=== PATIENT | female | born 1935 | race Caucasian/White ===

== ENCOUNTER → 2016-12-02 | Outpatient (CLI) | payer MEDICARE ==
[~2016-12-02] MED LIST: ACET500C PO; ASPI-110 PO; ASPI81 PO; BENI20TA25 PO; BENI40TA3 PO; COLA100C3 PO; ENOX40P SQ; ERGO1CAP10 PO; GABA100C4 PO; LEVO.15 PO; LOSA100T PO; LOSA50TA PO; MAXZ PO; METF-324 PO; METF1000 PO; MILK2400 PO; MULTCHW27 PO; OXYC-360 PO; PERC5TAB12 PO; SIMV20 PO; STOO100C PO; TYLE500T PO; ZOCO20TA PO; [UNRECOGNIZED DRUG - CODE] PO
[2016-12-02 10:53] LABS: AUTOMATED NEUTROPHIL # 4.3 TH/MM3 (1.8-7.7); BASOPHIL % 0.3 % (0.0-2.0); EOSINOPHIL # 0.3 TH/MM3 (0-0.4); EOSINOPHIL % 4.2 % (0.0-4.0); HEMATOCRIT 39.8 % (35.0-46.0); HEMO FLAGS DIFF FINAL; LYMPH % 17.2 % (9.0-44.0); LYMPHOCYTE # 1.1 TH/MM3 (1.0-4.8); MEAN CELL VOLUME 103.3 FL (80.0-100.0); MEAN CORPUSCULAR HEMOGLOBIN 34.8 PG (27.0-34.0); MEAN CORPUSCULAR HGB CONC 33.7 % (32.0-36.0); MONO % 8.2 % (0.0-8.0); NEUT % 70.1 % (16.0-70.0); PLATELET COUNT 304 TH/MM3 (150-450); RED BLOOD COUNT 3.86 MIL/MM3 (4.00-5.30); RED CELL DISTRIBUTION WIDTH 13.5 % (11.6-17.2); WHITE BLOOD COUNT 6.2 TH/MM3 (4.0-11.0)
--- NOTE | 2016-12-03 14:37 | EKG ---
Date Performed: 12/02/2016 Time Performed: 10:34:04 PTAGE: 81 years EKG: Sinus rhythm with PAC(s) Prolonged QT interval Left axis deviation Left anterior fascicular block Abnormal ECG Co mpared to PREVIOUS TRACING , precordial R-wave progression has changed which may be due to lead eliane cement. PREVIOUS TRACIN10/25/2010 10.49 DOCTOR: Yasmain Hickman Interpretating Date/Time 12/03/2016 14:35:51
== END ==
LOC: PHPRE 09:23
PROVIDERS: ATTEND Ophthalmology
DX: H25.9 Unspecified age-related cataract (principal); I10 Essential (primary) hypertension; R94.31 Abnormal electrocardiogram [ECG] [EKG]
CPT/HCPCS: 85025; 93005

== ENCOUNTER → 2016-12-16 | Day surgery (SDC) | payer MEDICARE ==
--- NOTE | 2016-12-03 15:18 | MH ---
cc: SONI HECK M.D. DATE OF ADMISSION: 12/16/2016 ADMISSION DIAGNOSIS Cataract, right eye. HISTORY OF PRESENT ILLNESS This 81-year-old white female is coming through [facility] for the purpose of a lens extraction of the right eye with intraocular lens implant under local anesthesia. She has noted decreasing visual acuity interfering with her daily activities and elected to have the above procedure. Her best-corrected visual acuity in room light is 20/200 in the right eye and 20/50 +2 in the left. PAST MEDICAL HISTORY 1. Diabetes type 2 for 18 years. 2. History of thyroid problems. 3. Rheumatoid arthritis. 4. Cholesterol problems. PAST SURGICAL HISTORY 1. Ovarian surgery. 2. Thyroid surgery. 3. Left ankle fusion. 4. Right knee replacement. MEDICATIONS Daily medications include: 1. Metformin. 2. Hydrochlorothiazide. 3. Simvastatin. 4. Levothyroxine. 5. Vitamin-D. 6. Multivitamins. 7. Two baby aspirin a day. ALLERGIES She is allergic to PENICILLIN. SOCIAL HISTORY She is not smoking currently and does not drink alcohol. FAMILY HISTORY Noncontributory. REVIEW OF SYSTEMS HEAD: Patient denies severe headaches, dizziness or recent head injury. EARS: The patient has ringing in her ears for a few years. Patient denies hearing loss, ear pain, discharge. NOSE: She has some nasal discharge due to allergies. Denies obstruction or frequent colds. MOUTH AND THROAT: Patient denies soreness of the mouth or tongue, bleeding gums, trouble swallowing, changes in voice or sore throat. NECK: She feels she has had a stiff neck for about a week but usually does not have that. Patient denies neck pain or swelling, limitation of neck movement or neck injury. CARDIOPULMONARY SYSTEM: Patient denies shortness of breath, orthopnea, chronic cough, sputum production, hemoptysis, chest pain, wheezing, palpitations or light-headedness. GI SYSTEM: Patient denies poor appetite, nausea, vomiting, abdominal pain, ulcers, hemorrhoids or change in bowel habits. SYSTEM: She has urinary frequency secondary to taking a diuretic. Denies dysuria or change in urine color. NERVOUS SYSTEM: Patient denies convulsions, vertigo, stroke, numbness or weakness. PHYSICAL EXAMINATION VITAL SIGNS: Blood pressure 138/78, pulse 64, respirations 20. HEAD: Normocephalic, atraumatic. NOSE: Without rhinorrhea. THROAT: Clear. NECK: Supple. CHEST: Clear. HEART: Regular rhythm. ABDOMEN: Without tenderness. EXTREMITIES: Without edema. NEUROLOGIC: Within normal limits. MENTAL STATUS: Within normal limits. EYE EXAM: The patient's best-corrected visual acuity in room light is 20/200 in the right eye and 20/50 +2 in the left. Visual smith are full to confrontation testing. Extraocular muscle exam reveals full versions with orthophoria in the distance and exophoria at near. Pupils are 3 mm equal, round, and reactive to light without afferent defect. Anterior segment examination reveals a mild pterygium laterally in the right eye. There are nuclear sclerotic, cortical and posterior subcapsular cataract changes in the right lens. The left lens has nuclear sclerotic and cortical cataract changes. Intraocular pressure is 22 in each eye by applanation tonometry. Dilated fundus exam revealed sharp disks with cup-to-disk ratio of 0.3 in the right eye and 0.35 in the left. The macula is clear bilaterally. A posterior vitreous detachment is present bilaterally. Cobblestone peripheral retinal degeneration is noted inferiorly in both eyes. IMPRESSION 1. Bilateral cataracts, right greater than left. 2. Posterior vitreous detachment, both eyes. 3. Glaucoma suspect, low risk. 4. Cobblestone peripheral retinal degeneration inferiorly, both eyes. PLAN Lens extraction of the right eye with intraocular lens implant under local anesthesia through [facility]. Iris retractors will be used in this case because the pupil does not dilate fully. The patient has been cleared medically. She has been counseled as to the risks, benefits and alternatives and elected to proceed. I feel that cataract surgery will improve the quality of life and activities of daily living in this patient. MD DORCAS Ruiz/EUGENE /2:52 PM /3:03 PM
[~2016-12-16] VITALS: Ht 167.6 cm; Wt 107.7 kg
[~2016-12-16] MED LIST changes: +ACETYLCHOLINE CHL OPHT SOLN 1:100 2 ML VIAL IO ONE; -ASPI81 PO; -BENI20TA25 PO; -COLA100C3 PO; +CYCLOPENTOLATE HCL 1% OPHT SOLN 2 ML BTL ONE; +DICLOFENAC SOD 0.1% OPHT SOLN 2.5 ML BTL ONE; -ENOX40P SQ; +EPINEPHrine HCL (1:1000) 1 MG/ML VIAL OTHER ONE; +GATIFLOXACIN 0.5% OPHT SOLN 2.5 ML BTL ONE; +HYALURONIDASE/LIDOCAINE/BUPIVACAINE 4.5 ML SYR ONE; +HYALURONIDASE/LIDOCAINE/BUPIVACAINE 6 ML SYR ONE; -MAXZ PO; -METF-324 PO; -MILK2400 PO; -OXYC-360 PO; -PERC5TAB12 PO; +PHENYLEPHRINE HCL 2.5% OPTH SOLN 2 ML BTL ONE; +PILOCARPINE HCL 2% OPHT SOLN 15 ML BTL RIGHT EYE ONE; +PROPARACAINE HCL 0.5% OPHT SOLN 15 ML BTL ONE; +PROPOFOL 200 MG/20 ML AMP ONE; -SIMV20 PO; +SODIUM CHLORID 0.9% 500 ML INJ 500 ML ONE; -STOO100C PO; +TETRACAINE 0.5% OPTH SOLN 4 ML BTL ONE; +TOBRAMYCIN/DEXAMETHASONE OPTH OINT 3.5 GM TUBE RIGHT EYE ONE; +TROPICAMIDE 1% OPHT SOLN 15 ML BTL ONE; -TYLE500T PO; +VISCOAT OPHT IRRIG SOLN 0.75 ML SYRINGE RIGHT EYE ONE; -[UNRECOGNIZED DRUG - CODE] PO; +acetaZOLAMIDE SEQUELS 500 MG SUSTAINED RELEASE CAP ONE
[2016-12-16 08:00] VITALS: PULSE 77
[2016-12-16 08:03] VITALS: BP 185/90; PULSE 77; RESP 16; TEMP 97.4; O2SAT 95
[2016-12-16 10:55] VITALS: BP 144/80; PULSE 74; RESP 16; TEMP 97.9; O2SAT 97
--- NOTE | 2016-12-18 09:49 | MP ---
cc: SONI ZUNIGA M.D. DATE OF SURGERY 12/16/2016 PREOPERATIVE DIAGNOSIS Cataract right eye. POSTOPERATIVE DIAGNOSIS Cataract right eye. OPERATION Extracapsular cataract extraction with posterior chamber intraocular lens implant by phacoemulsification, right eye. SURGEON Soni Zuniga M.D. ANESTHESIA Local COMPLICATIONS None INDICATIONS See history and physical previously dictated. OPERATIVE PROCEDURE The patient had adequate retrobulbar and eyelid blocks administered in the holding area and was brought to the operating room. The right eye was prepped and draped in the usual sterile ophthalmic manner. A lid speculum was inserted in the right eye. A 4-0 silk bridle suture was placed through the conjunctiva near the superior rectus muscle and it was tagged to the drape. A fornix-based conjunctival flap was prepared spanning approximately 5 mm in width. Hemostasis was obtained with wet-field cautery. A 3.5 mm groove was made 1 mm from the limbus and dissected up to the limbus in the form of a scleral pocket incision. A stab incision was then made at the 2 o'clock position. Viscoelastic was injected into the anterior chamber. In order to maintain an adequately dilated pupil, it was elected to use iris retractors in this case. Stab incisions were made at the 1 o'clock, 3 o'clock, 5 o'clock, 8 o'clock and 10 o'clock positions. Iris retractors were then inserted through the stab incisions in the peripheral cornea and positioned to enlarge the size of the pupil. The anterior chamber was entered with a 2.75 mm keratome through the scleral pocket incision. A 360 degree continuous curvilinear capsulorrhexis was then performed. Hydrodissection was utilized to divide the nucleus into inner and outer components and to separate the cortex from the capsule. Phacoemulsification was then utilized to remove the nucleus. The outer nuclear layer was removed with irrigation and aspiration and short bursts of ultrasound as necessary. The cortex was removed with the irrigation-aspiration handpiece. The posterior capsule was polished with the capsule polisher. Viscoelastic was injected into the capsular bag. The intraocular lens was inspected and found to be in good condition. The lens utilized was a Eduar, model SA60AT with a power of +19.5 diopters. The lens was inserted into the capsular bag. The five iris retractors were removed. The viscoelastic in the anterior chamber was then removed with the irrigation-aspiration hand piece. Viscoelastic was also removed from beneath the intraocular lens. The anterior chamber was filled with Miochol-E through the stab incision and pressurized. The wound was checked for leaks at this pressure and normalized pressure and there were none. The 4-0 bridle suture was removed. The conjunctival flap was brought down over the wound and secured with cautery. Pilocarpine 2% eye drops were instilled topically. The lid speculum was removed. TobraDex ophthalmic ointment was applied. The eye was double patched and shielded. The patient tolerated the procedure well and left the Operating Room in satisfactory condition. MD DORCAS Ruiz/ARTURO /10:13 AM /9:35 AM
== END | disposition home or self-care (01) ==
LOC: PHSDC 06:50
PROVIDERS: ATTEND Ophthalmology
DX: H26.9 Unspecified cataract (principal); I10 Essential (primary) hypertension; E11.9 Type 2 diabetes mellitus without complications; M06.9 Rheumatoid arthritis, unspecified; Z79.84 Long term (current) use of oral hypoglycemic drugs; Z88.0 Allergy status to penicillin; Z96.651 Presence of right artificial knee joint
CPT/HCPCS: 00142; 66984; J0171; J7040; V2632

== ENCOUNTER → 2017-01-20 | Outpatient (CLI) | payer MEDICARE ==
[~2017-01-20] MED LIST changes: -ACETYLCHOLINE CHL OPHT SOLN 1:100 2 ML VIAL IO ONE; -BENI40TA3 PO; -CYCLOPENTOLATE HCL 1% OPHT SOLN 2 ML BTL ONE; -DICLOFENAC SOD 0.1% OPHT SOLN 2.5 ML BTL ONE; -EPINEPHrine HCL (1:1000) 1 MG/ML VIAL OTHER ONE; -GATIFLOXACIN 0.5% OPHT SOLN 2.5 ML BTL ONE; -HYALURONIDASE/LIDOCAINE/BUPIVACAINE 4.5 ML SYR ONE; -HYALURONIDASE/LIDOCAINE/BUPIVACAINE 6 ML SYR ONE; -LOSA50TA PO; -PHENYLEPHRINE HCL 2.5% OPTH SOLN 2 ML BTL ONE; -PILOCARPINE HCL 2% OPHT SOLN 15 ML BTL RIGHT EYE ONE; -PROPARACAINE HCL 0.5% OPHT SOLN 15 ML BTL ONE; -PROPOFOL 200 MG/20 ML AMP ONE; -SODIUM CHLORID 0.9% 500 ML INJ 500 ML ONE; -TETRACAINE 0.5% OPTH SOLN 4 ML BTL ONE; -TOBRAMYCIN/DEXAMETHASONE OPTH OINT 3.5 GM TUBE RIGHT EYE ONE; -TROPICAMIDE 1% OPHT SOLN 15 ML BTL ONE; -VISCOAT OPHT IRRIG SOLN 0.75 ML SYRINGE RIGHT EYE ONE; -acetaZOLAMIDE SEQUELS 500 MG SUSTAINED RELEASE CAP ONE
[2017-01-20 12:22] LABS: AUTOMATED NEUTROPHIL # 3.5 TH/MM3 (1.8-7.7); BASOPHIL % 0.8 % (0.0-2.0); EOSINOPHIL # 0.8 TH/MM3 (0-0.4); EOSINOPHIL % 13.6 % (0.0-4.0); HEMATOCRIT 39.1 % (35.0-46.0); HEMO FLAGS DIFF FINAL; LYMPH % 16.5 % (9.0-44.0); MEAN CELL VOLUME 102.2 FL (80.0-100.0); MEAN CORPUSCULAR HEMOGLOBIN 35.2 PG (27.0-34.0); MEAN CORPUSCULAR HGB CONC 34.4 % (32.0-36.0); MONO % 8.5 % (0.0-8.0); NEUT % 60.6 % (16.0-70.0); PLATELET COUNT 275 TH/MM3 (150-450); RED BLOOD COUNT 3.82 MIL/MM3 (4.00-5.30); RED CELL DISTRIBUTION WIDTH 13.3 % (11.6-17.2); WHITE BLOOD COUNT 5.8 TH/MM3 (4.0-11.0)
== END ==
LOC: PHPRE 11:01
PROVIDERS: ATTEND Ophthalmology
DX: Z01.812 Encounter for preprocedural laboratory examination (principal); H26.9 Unspecified cataract
CPT/HCPCS: 36415; 85025

== ENCOUNTER → 2017-01-27 | Day surgery (SDC) | payer MEDICARE ==
--- NOTE | 2017-01-20 18:05 | MH ---
cc: SONI HECK DATE OF ADMISSION 01/27/2017 ADMISSION DIAGNOSIS Cataract left eye. HISTORY OF PRESENT ILLNESS This 81-year-old white female is coming through [facility] for the purpose of a lens extraction of the left eye with intraocular lens implant under local anesthesia. She had a similar procedure in the right eye in November of this year and did well postoperatively and now is requesting cataract surgery for her left eye. Her best corrected visual acuity is 20/20 -3 in the right eye and 20/50 -2 in the left eye in room light. PAST MEDICAL HISTORY The patient has a history of: 1. Hypertension. 2. diabetes type 2 for 18 years. 3. Thyroid problems. 4. Rheumatoid arthritis. 5. Cholesterol problems. PAST SURGICAL HISTORY Includes: 1. The above-mentioned cataract surgery on the right eye November. 2. As well as ovary surgery. 3. Thyroid gland surgery. 4. Left ankle fusion with bone graft. 5. Right knee replacement. MEDICATIONS Daily medications include: 1. Metformin. 2. Hydrochlorothiazide. 3. Simvastatin. 4. Levothyroxine. 5. Vitamin D. 6. Multivitamins. 7. Two baby aspirins a day. ALLERGIES SHE IS ALLERGIC TO PENICILLIN. SOCIAL HISTORY She does not smoke at the present time but has in the past and does not drink alcohol. FAMILY HISTORY Noncontributory other than the patient has a daughter with diabetes who may have had laser surgery for it. REVIEW OF SYSTEMS HEAD: Patient denies severe headaches, dizziness or recent head injury. EARS: The patient has ringing in her ears for a few years. Patient denies hearing loss, ear pain, discharge. NOSE: Patient has nasal allergies causing some discharge. Denies obstruction or frequent colds. MOUTH AND THROAT: Patient denies soreness of the mouth or tongue, bleeding gums, trouble swallowing, changes in voice or sore throat. NECK: The patient has some neck discomfort at times. Patient denies neck swelling, limitation of neck movement or neck injury. CARDIOPULMONARY SYSTEM: Patient denies shortness of breath, orthopnea, chronic cough, sputum production, hemoptysis, chest pain, wheezing, palpitations or light-headedness. GI SYSTEM: Patient denies poor appetite, nausea, vomiting, abdominal pain, ulcers, hemorrhoids or change in bowel habits. SYSTEM: The patient has urinary frequency secondary to her diuretics. The patient denies dysuria, change in urine color. NERVOUS SYSTEM: Patient denies convulsions, vertigo, stroke, numbness or weakness. PHYSICAL EXAMINATION VITAL SIGNS: Blood pressure 132/78, pulse 68, respirations 20. HEAD: Normocephalic, atraumatic. NOSE: Without rhinorrhea. THROAT: Clear. NECK: Supple. CHEST: Clear. HEART: Regular rhythm. ABDOMEN: Without tenderness. EXTREMITIES: Without edema. NEUROLOGIC: Within normal limits. MENTAL STATUS: Within normal limits. EYE EXAMINATION The patient's best corrected visual acuity is 20/20 -3 in the right eye and 20/50 -2 in the left eye in room light. Visual smith are full to confrontation testing. Extraocular muscle exam reveals full versions with orthophoria at distance and exophoria at near. Pupils are 3 mm equal, round, reactive to light without afferent defect. Anterior segment examination reveals mild pterygium on the right side. A posterior chamber intraocular lens is present in the right eye. Nuclear sclerotic and cortical cataract is present in the left eye. Intraocular pressure is 20 in each eye by applanation tonometry. Dilated fundus exam revealed sharp disks with cup-to-disk ratio 0.3 in the right eye and 0.35 in the left. The macula is clear bilaterally. Posterior vitreous detachment is present bilaterally. Cobblestone peripheral retinal degeneration is noted inferiorly in both eyes. IMPRESSION 1. Cataract left eye. 2. Pseudophakia right eye. 3. Glaucoma suspect low-risk both eyes. 4. Posterior vitreous detachment both eyes. 5. Cobblestone peripheral retinal degeneration inferiorly both eyes. PLAN And the plan is lens extraction of the left eye with intraocular lens implant under local anesthesia through [facility]. The surgery may require the use iris retractors as the patient's pupil does not dilate well. The patient has been cleared medically. She has been counseled as to the risks, benefits and alternatives and elected to proceed. I feel that cataract surgery will improve the quality of life and activities of daily living in this patient. MD DORCAS Ruiz/ROBERTO /4:52 PM /5:48 PM
[~2017-01-27] VITALS: Ht 167.6 cm; Wt 107.7 kg
[~2017-01-27] MED LIST changes: +ACETYLCHOLINE CHL OPHT SOLN 1:100 2 ML VIAL ONE; +CYCLOPENTOLATE HCL 1% OPHT SOLN 2 ML BTL ONE; +DICLOFENAC SOD 0.1% OPHT SOLN 2.5 ML BTL ONE; +EPINEPHrine HCL (1:1000) 1 MG/ML VIAL ONE; +GATIFLOXACIN 0.5% OPHT SOLN 2.5 ML BTL ONE; +HYALURONIDASE/LIDOCAINE/BUPIVACAINE 4.5 ML SYR ONE; +HYALURONIDASE/LIDOCAINE/BUPIVACAINE 6 ML SYR ONE; +PHENYLEPHRINE HCL 2.5% OPTH SOLN 2 ML BTL ONE; +PROPARACAINE HCL 0.5% OPHT SOLN 15 ML BTL ONE; +PROPOFOL 200 MG/20 ML AMP ONE; +SODIUM CHLORID 0.9% 500 ML INJ 500 ML ONE; +TROPICAMIDE 1% OPHT SOLN 15 ML BTL ONE; +VISCOAT OPHT IRRIG SOLN 0.75 ML SYRINGE LEFT EYE ONE; +acetaZOLAMIDE SEQUELS 500 MG SUSTAINED RELEASE CAP ONE
[2017-01-27 07:44] VITALS: BP 158/83; PULSE 68; RESP 24; TEMP 97.9; O2SAT 95
[2017-01-27 08:27] VITALS: PULSE 66
[2017-01-27] MEDS: PILOCARPINE HCL 2% OPHT SOLN 15 ML BTL ONE ×2 (09:23→09:55)
[2017-01-27] MEDS: TOBRAMYCIN/DEXAMETHASONE OPTH OINT 3.5 GM TUBE ONE ×2 (09:30→09:55)
[2017-01-27 10:05] VITALS: TEMP 97.9
[2017-01-27 10:30] VITALS: BP 172/73; PULSE 76; RESP 16; O2SAT 95
--- NOTE | 2017-01-28 13:38 | MP ---
cc: SONI ZUNIGA DATE OF SURGERY: January 27, 2017 PREOPERATIVE DIAGNOSIS: Cataract left eye. POSTOPERATIVE DIAGNOSIS: Cataract left eye. OPERATION: Extracapsular cataract extraction with posterior chamber intraocular lens implant by phacoemulsification, left eye. SURGEON: Soni Zuniga M.D. ANESTHESIA: Local. COMPLICATIONS: None. INDICATIONS: See history and physical previously dictated. OPERATIVE PROCEDURE: The patient had adequate retrobulbar and eyelid blocks administered in the holding area and was brought to the operating room. The left eye was prepped and draped in the usual sterile ophthalmic manner. A lid speculum was inserted in the left eye. A 4-0 silk bridle suture was placed through the conjunctiva near the superior rectus muscle and it was tagged to the drape. A fornix-based conjunctival flap was prepared spanning approximately 5 mm in width. Hemostasis was obtained with wet-field cautery. A 3.5 mm groove was made 1 mm from the limbus and dissected up to the limbus in the form of a scleral pocket incision. A stab incision was then made at the 2 o'clock position. Viscoelastic was injected into the anterior chamber. The anterior chamber was entered with a 2.75 mm keratome through the scleral pocket incision. A 360 degree continuous curvilinear capsulorrhexis was then performed. Hydrodissection was utilized to divide the nucleus into inner and outer components and to separate the cortex from the capsule. Phacoemulsification was then utilized to remove the nucleus. The outer nuclear layer was removed with irrigation and aspiration and short bursts of ultrasound as necessary. The cortex was removed with the irrigation/aspiration handpiece. The posterior capsule was polished with the capsule polisher. Viscoelastic was injected into the capsular bag. The intraocular lens was inspected and found to be in good condition. The lens utilized was an Eduar, model number SA60AT with a power of +20 diopters. The lens was inserted into the capsular bag. The viscoelastic in the anterior chamber was then removed with the irrigation-aspiration handpiece. Viscoelastic was also removed from beneath the intraocular lens. The anterior chamber was filled with Miochol-E through the stab incision and pressurized. The wound was checked for leaks at this pressure and normalized pressure and there were none. The 4-0 bridle suture was removed. The conjunctival flap was brought down over the wound and secured with cautery. Pilocarpine 2% eye drops were instilled topically. The lid speculum was removed. TobraDex ophthalmic ointment was applied. The eye was double patched and shielded. The patient tolerated the procedure well and left the Operating Room in satisfactory condition. SoniMD DORCAS Oswald/CHECO /10:07 AM /1:33 PM
== END | disposition home or self-care (01) ==
LOC: PHSDC 06:50
PROVIDERS: ATTEND Ophthalmology
DX: H25.812 Combined forms of age-related cataract, left eye (principal); I10 Essential (primary) hypertension; E11.9 Type 2 diabetes mellitus without complications; M06.9 Rheumatoid arthritis, unspecified; Z79.84 Long term (current) use of oral hypoglycemic drugs
CPT/HCPCS: 00142; 66984; J0171; J7040; V2632

== ENCOUNTER 2017-11-15 09:53 | Inpatient (IN) | payer MEDICARE ==
[2017-11-15] VITALS (9 sets, daily range): BP systolic 150–205; BP diastolic 65–89; PULSE 58–82; RESP 16–27; TEMP 96.2–97.6; O2SAT 94–100
[~2017-11-15] VITALS: Ht 167.6 cm; Wt 112.5 kg
[~2017-11-15 09:53] MED LIST changes: -ACETYLCHOLINE CHL OPHT SOLN 1:100 2 ML VIAL ONE; -ASPI-110 PO; +ASPI1TAB57 PO; -CYCLOPENTOLATE HCL 1% OPHT SOLN 2 ML BTL ONE; -DICLOFENAC SOD 0.1% OPHT SOLN 2.5 ML BTL ONE; -EPINEPHrine HCL (1:1000) 1 MG/ML VIAL ONE; -GATIFLOXACIN 0.5% OPHT SOLN 2.5 ML BTL ONE; -HYALURONIDASE/LIDOCAINE/BUPIVACAINE 4.5 ML SYR ONE; -HYALURONIDASE/LIDOCAINE/BUPIVACAINE 6 ML SYR ONE; -PHENYLEPHRINE HCL 2.5% OPTH SOLN 2 ML BTL ONE; -PROPARACAINE HCL 0.5% OPHT SOLN 15 ML BTL ONE; -PROPOFOL 200 MG/20 ML AMP ONE; -SODIUM CHLORID 0.9% 500 ML INJ 500 ML ONE; -TROPICAMIDE 1% OPHT SOLN 15 ML BTL ONE; -VISCOAT OPHT IRRIG SOLN 0.75 ML SYRINGE LEFT EYE ONE; -acetaZOLAMIDE SEQUELS 500 MG SUSTAINED RELEASE CAP ONE
[2017-11-15] MEDS ORDERED: ACETAMINOPHEN/HYDROcodone 325 MG/5 MG TAB PO ONE (10:00)
[2017-11-15] MEDS ORDERED: VITA500012 PO (10:11)
[2017-11-15] MEDS ORDERED: PROPOFOL 200 MG/20 ML AMP IV ONE (10:45)
[2017-11-15] MEDS ORDERED: MORPHINE SULFATE 4 MG/ML INJ IV PUSH ONE (10:45)
--- NOTE | 2017-11-15 10:59 | RADRPT ---
EXAM DATE/TIME: 11/15/2017 10:23 [facility] COMPARISON: KNEE RIGHT LTD (1 OR 2 VWS), November 07, 2010, 15:29. INDICATIONS : Pain from fall. MEDICAL HISTORY : None. SURGICAL HISTORY : Knee replacement, right. ENCOUNTER: Initial ACUITY: 1 day PAIN SCORE: 10/10 LOCATION: Right knee. FINDINGS: The patient has a total knee prosthesis in place. There is fracture of the distal femur just above th e femoral prosthetic component. The distal portion of the femur and knee is displaced laterally and p osteriorly. CONCLUSION: Fracture in the distal right femur just above the femoral prosthetic component of a total knee replac ement. Ilia Wood MD on November 15, 2017 at 10:56 Board Certified Radiologist. This report was verified electronically.
[2017-11-15 11:15] LABS: AUTOMATED NEUTROPHIL # 3.8 TH/MM3 (1.8-7.7); BASOPHIL % 0.3 % (0.0-2.0); EOSINOPHIL # 0.2 TH/MM3 (0-0.4); EOSINOPHIL % 3.6 % (0.0-4.0); HEMATOCRIT 39.6 % (35.0-46.0); HEMOGLOBIN 13.6 GM/DL (11.6-15.3); LYMPH % 19.2 % (9.0-44.0); LYMPHOCYTE # 1.1 TH/MM3 (1.0-4.8); MEAN CELL VOLUME 102.4 FL (80.0-100.0); MEAN CORPUSCULAR HEMOGLOBIN 35.2 PG (27.0-34.0); MEAN CORPUSCULAR HGB CONC 34.4 % (32.0-36.0); MEAN PLATELET VOLUME 7.4 FL (7.0-11.0); MONOCYTE # 0.5 TH/MM3 (0-0.9); NEUT % 67.9 % (16.0-70.0); PLATELET COUNT 264 TH/MM3 (150-450); RED BLOOD COUNT 3.86 MIL/MM3 (4.00-5.30); RED CELL DISTRIBUTION WIDTH 14.9 % (11.6-17.2); WHITE BLOOD COUNT 5.5 TH/MM3 (4.0-11.0)
[2017-11-15 11:18] LABS: PROTHROMBIN TIME - PATIENT 9.9 SEC (9.8-11.6)
[2017-11-15 11:36] LABS: ALKALINE PHOSPHATASE 74 U/L (45-117); TOTAL BILIRUBIN ADULT 0.4 MG/DL (0.2-1.0); TOTAL PROTEIN 6.9 GM/DL (6.4-8.2)
[2017-11-15 11:47] LABS: ALBUMIN 3.6 GM/DL (3.4-5.0); ALT (GPT) 19 U/L (10-53); AST (GOT) 19 U/L (15-37); BICARBONATE 29.8 MEQ/L (21.0-32.0); BLOOD UREA NITROGEN 16 MG/DL (7-18); CALCIUM 8.6 MG/DL (8.5-10.1); CHLORIDE 98 MEQ/L (98-107); CREATININE 0.99 MG/DL (0.50-1.00); GLOMERULAR FILTRATION RATE 54 ML/MIN (>89); GLUCOSE,RANDOM 165 MG/DL (74-106); SODIUM (NA) 135 MEQ/L (136-145)
[2017-11-15] MEDS ORDERED: DEXTROSE 50% IN WATER 50 ML VIAL(D50) IV PUSH PRN (12:30)
[2017-11-15] MEDS ORDERED: ENALAPRILAT 1.25 MG/ML VIAL IV PUSH PRN (12:30)
[2017-11-15] MEDS ORDERED: ONDANSETRON HCL 4 MG/2 ML VIAL IV PUSH PRN (12:30)
[2017-11-15] MEDS ORDERED: GLUCAGON 1 MG/ML VIAL OTHER PRN (12:30)
--- NOTE | 2017-11-15 12:33 | RADRPT ---
EXAM DATE/TIME: 11/15/2017 11:49 [facility] COMPARISON: No previous studies available for comparison. INDICATIONS : Post reduction. MEDICAL HISTORY : None. SURGICAL HISTORY : Right knee replacement. ENCOUNTER: Initial ACUITY: 1 day PAIN SCORE: 5/10 LOCATION: Right Distal femur. FINDINGS: There is an oblique fracture involving the distal shaft of the femur just above the knee prosthesis. The fracture is displaced. No joint dislocation is seen at the knee joint. There is no dislocation at the hip joint. CONCLUSION: Oblique displaced fracture involving the distal shaft of the femur just above the knee prosthesis. Tamir Lu MD on November 15, 2017 at 12:30 Board Certified Radiologist. This report was verified electronically.
--- NOTE | 2017-11-15 12:37 | PD ---
HPI Chief Complaint: Fall Time Seen by Provider: 09:56 Travel History International Travel<30 days: No Contact w/Intl Traveler<30days: No Traveled to known affect area: No History of Present Illness HPI Patient is an 82-year-old female who comes in after a fall. She says she tripped over the mat in her house and landed on her right knee. She complains of pain to the knee. She denies any other injuries. She denies hitting her head or any loss of consciousness. She says she was in her normal state of health prior to this. She had a knee replacement performed several years ago. She has not taken anything for the pain. Severity is moderate. 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) Respiratory: No Pneumonia: Yes Thyroid Disease: Yes Ulcer: No Past Surgical History Abdominal Surgery: No AICD: No Appendectomy: Yes Body Medical Devices: LEFT ANKLE SCREWS Cardiac Surgery: No Ear Surgery: No Endocrine Surgery: Yes (THYROIDECTOMY) Eye Surgery: No Genitourinary Surgery: No Gynecologic Surgery: Yes (TUMORS REMOVED OVARIES, PARTIAL HYSTERECTOMY) Hysterectomy: Yes (PARTIAL) Joint Replacement: Yes (RIGHT KNEE) Oral Surgery: No Pacemaker: No Thoracic Surgery: No Social History Alcohol Use: Yes (SOCIALLY) Tobacco Use: No Substance Use: No Allergies-Medications (Allergen,Severity, Reaction): Coded Allergies: lactose (Unverified Allergy, Severe, DIFFICULTY BREATHING, 11/15/17) penicillin G (Unverified Allergy, Intermediate, RASH, 11/15/17) Reported Meds & Prescriptions Reported Meds & Active Scripts Active Reported Ergocalciferol 50,000 Unit Cap 50,000 Units PO Q7D Losartan (Losartan Potassium) 100 Mg Tab 100 Mg PO DAILY Zocor (Simvastatin) 20 Mg Tab 150 Mg PO HS Metformin (Metformin HCl) 1,000 Mg Tab 1,000 Mg PO BIDPC With meals Synthroid (Levothyroxine Sodium) 150 Mcg Tab 150 Mcg PO DAILY Aspirin 81 (Aspirin) 81 Mg Tabdr 81 Mg PO DAILY Review of Systems Except as stated in HPI: all other systems reviewed are Neg General / Constitutional: No: Fever, Chills HENT: No: Headaches, Lightheadedness Cardiovascular: No: Chest Pain or Discomfort Respiratory: No: Shortness of Breath Gastrointestinal: No: Nausea, Vomiting Musculoskeletal: Positive: Limited ROM, Pain Neurologic: No: Weakness, Dizziness, Sensory Disturbance Physical Exam Narrative GENERAL: Awake and alert, in no acute distress. SKIN: Focused skin assessment warm/dry. HEAD: Atraumatic. Normocephalic. EYES: Pupils equal and round. No scleral icterus. ENT: Mucous membranes pink and moist. NECK: Trachea midline. No JVD. CARDIOVASCULAR: Regular rate and rhythm. No murmur appreciated. RESPIRATORY: No accessory muscle use. Clear to auscultation. Breath sounds equal bilaterally. GASTROINTESTINAL: Abdomen soft, non-tender, nondistended. MUSCULOSKELETAL: No clubbing. No cyanosis. Edema of the left leg, chronic. No tenderness to the pelvis or hips. Unable to extend right knee due to pain. Pedal pulse intact. NEUROLOGICAL: Awake and alert. No obvious cranial nerve deficits. Motor grossly within normal limits. Normal speech. PSYCHIATRIC: Appropriate mood and affect; insight and judgment normal. Data Data Last Documented VS Vital Signs Date Time Temp Pulse Resp B/P (MAP) Pulse Ox O2 Delivery O2 Flow Rate FiO2 11/15/17 11:21 20 11/15/17 11:20 63 158/74 (102) 100 Nasal Cannula 2.00 11/15/17 10:06 97.6 Orders Orders Acetamin-Hydrocod 325-5 Mg (Taswell 5-325 (11/15/17 10:00) Knee, Ltd (1 Or 2vws) (11/15/17 ) Iv Access Insert/Monitor (11/15/17 10:38) Complete Blood Count With Diff (11/15/17 10:38) Comprehensive Metabolic Panel (11/15/17 10:38) Act Partial Throm Time (Ptt) (11/15/17 10:38) Prothrombin Time / Inr (Pt) (11/15/17 10:38) Morphine Inj (Morphine Inj) (11/15/17 10:45) Propofol 200 Mg/20 Ml Inj (Diprivan 200 (11/15/17 10:45) Femur (Ap & Lat/2vws) (11/15/17 11:09) Admit Order (Ed Use Only) (11/15/17 ) Labs Laboratory Tests Test 11/15/17 10:05 White Blood Count 5.5 TH/MM3 Red Blood Count 3.86 MIL/MM3 Hemoglobin 13.6 GM/DL Hematocrit 39.6 % Mean Corpuscular Volume 102.4 FL Mean Corpuscular Hemoglobin 35.2 PG Mean Corpuscular Hemoglobin Concent 34.4 % Red Cell Distribution Width 14.9 % Platelet Count 264 TH/MM3 Mean Platelet Volume 7.4 FL Neutrophils (%) (Auto) 67.9 % Lymphocytes (%) (Auto) 19.2 % Monocytes (%) (Auto) 9.0 % Eosinophils (%) (Auto) 3.6 % Basophils (%) (Auto) 0.3 % Neutrophils # (Auto) 3.8 TH/MM3 Lymphocytes # (Auto) 1.1 TH/MM3 Monocytes # (Auto) 0.5 TH/MM3 Eosinophils # (Auto) 0.2 TH/MM3 Basophils # (Auto) 0.0 TH/MM3 CBC Comment DIFF FINAL Differential Comment Prothrombin Time 9.9 SEC Prothromb Time International Ratio 1.0 RATIO Activated Partial Thromboplast Time 25.7 SEC Blood Urea Nitrogen 16 MG/DL Creatinine 0.99 MG/DL Random Glucose 165 MG/DL Total Protein 6.9 GM/DL Albumin 3.6 GM/DL Calcium Level 8.6 MG/DL Alkaline Phosphatase 74 U/L Aspartate Amino Transf (AST/SGOT) 19 U/L Alanine Aminotransferase (ALT/SGPT) 19 U/L Total Bilirubin 0.4 MG/DL Sodium Level 135 MEQ/L Potassium Level 4.5 MEQ/L Chloride Level 98 MEQ/L Carbon Dioxide Level 29.8 MEQ/L Anion Gap 7 MEQ/L Estimat Glomerular Filtration Rate 54 ML/MIN [facility] Medical Decision Making Medical Screen Exam Complete: Yes Emergency Medical Condition: Yes Medical Record Reviewed: Yes Differential Diagnosis femur fracture vs knee dislocation vs tib/fib fracture Narrative Course Patient is an 82-year-old female who comes in complaining of right knee pain after a fall today. Exam shows inability to straighten right knee. X-ray reveals a distal femur fracture. Patient was sedated and the fracture was reduced, she was placed in a knee immobilizer. Labs sent show no acute abnormalities. I spoke with Dr. Parker of orthopedics, who advises admission to medicine, n.p.o. Last 24 hours Impressions Femur X-Ray 11/15/17 1109 Signed Impressions: Service Date/Time: Wednesday, November 15, 2017 11:49 - CONCLUSION: Oblique displaced fracture involving the distal shaft of the femur just above the knee prosthesis. Tamir Lu MD Knee X-Ray 11/15/17 0000 Signed Impressions: Service Date/Time: Wednesday, November 15, 2017 10:23 - CONCLUSION: Fracture in the distal right femur just above the femoral prosthetic component of a total knee replacement. Ilia Wood MD Diagnosis Primary Impression: right distal femur fracture Admitting Information Admitting Physician Requests: Admit Ericka Gurrola MD Nov 15, 2017 12:37
--- NOTE | 2017-11-15 12:38 | HHI.HP ---
[facility] Frankie Walker MD Admission Diagnosis femur fracture Diagnoses: (1) right distal femur fracture Diagnosis: Principal Chief Complaint: pain to the right knee after a fall. Travel History International Travel<30 Days: No Contact w/Intl Traveler <30 Da: No Traveled to Known Affected Are: No History of Present Illness patient is a 82 y/o female with history of hypertension,diabetes and hypothyroidism who presented to ER after she fell earlier today. she says that she tripped and fell after which she started to have some pain to the right knee. she denies any prodromal symptoms before the fall. she didn't pass out and no head trauma. pain to the right knee was moderate in intesity at the time of my evaluation. Review of Systems Constitutional: DENIES: Fever, Weight loss, Chills, Night Sweats Eyes: DENIES: Blurred vision, Diplopia, Vision loss, Double Vision Ears, nose, mouth, throat: DENIES: Tinnitus, Vertigo, Throat pain, Epistaxis Respiratory: DENIES: Apneas, Cough, Snoring, Wheezing, Hemoptysis, Sputum production, Shortness of breath Cardiovascular: DENIES: Chest pain, Palpitations, Syncope, Dyspnea on Exertion , PND, Lower Extremity Edema, Orthopnea, Claudication Gastrointestinal: DENIES: Abdominal pain, Black stools, Bloody stools, Constipation, Diarrhea, Nausea, Vomiting, Difficulty Swallowing, Anorexia Genitourinary: DENIES: Urinary frequency, Urgency, Hematuria, Dysuria Musculoskeletal: COMPLAINS OF: Joint pain (right knee.), DENIES: Muscle aches, Stiffness, Joint Swelling Integumentary: DENIES: Rash Neurologic: DENIES: Abnormal gait, Headache, Localized weakness, Paresthesias, Seizures, Speech Problems, Tremor, Poor Balance Psychiatric: DENIES: Anxiety, Confusion, Mood changes, Depression, Hallucinations, Agitation, Suicidal Ideation, Homicidal Ideation, Delusions Past Family Social History Past Medical History hypertension/diabetes/hypothyroidism. Past Surgical History knee replacement/ cataract surgery. Reported Medications levothyroxine/losartan/metformin/zocor/cholecalciferol Allergies: Coded Allergies: lactose (Unverified Allergy, Severe, DIFFICULTY BREATHING, 11/15/17) penicillin G (Unverified Allergy, Intermediate, RASH, 11/15/17) Active Ordered Medications Inpatient Medications Acetaminophen/ Hydrocodone Bitart (Forsyth 5-325 Mg) 1 tab ONCE ONCE PO Last administered on 11/15/17at 10:14; Start 11/15/17 at 10:00; Stop 11/15/17 at 10:01 ; Status DC Morphine Sulfate (Morphine Inj) 4 mg ONCE ONCE IV PUSH Last administered on at 10:58; Start 11/15/17 at 10:45; Stop 11/15/17 at 10:46; Status DC Propofol (Diprivan 200 Mg/20 ml Inj) 200 mg ONCE ONCE IV Last administered on 11/15/17at 11:09; Start 11/15/17 at 10:45; Stop 11/15/17 at 10:46; Status DC Family History not relevant to this admission. Social History no smoking. Physical Exam Vital Signs Vital Signs Date Time Temp Pulse Resp B/P (MAP) Pulse Ox O2 Delivery O2 Flow Rate FiO2 11/15/17 11:21 20 11/15/17 11:20 63 20 158/74 (102) 100 Nasal Cannula 2.00 11/15/17 11:20 20 11/15/17 11:15 64 27 160/69 (99) 100 Nasal Cannula 2.00 11/15/17 10:53 69 24 197/89 (125) 97 Nasal Cannula 2.00 11/15/17 10:06 97.6 66 24 205/83 (123) 94 Room Air Physical Exam GENERAL: This is a well-nourished, well-developed patient, in no apparent distress. SKIN: No rashes, ecchymoses or lesions. Cool and dry. HEAD: Atraumatic. Normocephalic. No temporal or scalp tenderness. EYES: Pupils equal round and reactive. Extraocular motions intact. No scleral icterus. No injection or drainage. ENT: Nose without bleeding, purulent drainage or septal hematoma. Throat without erythema, tonsillar hypertrophy or exudate. Uvula midline. Airway patent. NECK: Trachea midline. No JVD or lymphadenopathy. Supple, nontender, no meningeal signs. CARDIOVASCULAR: Regular rate and rhythm without murmurs, gallops, or rubs. RESPIRATORY: Clear to auscultation. Breath sounds equal bilaterally. No wheezes , rales, or rhonchi. GASTROINTESTINAL: Abdomen soft, non-tender, nondistended. No hepato-splenomegaly , or palpable masses. No guarding. MUSCULOSKELETAL:right knee in immobolizer. NEUROLOGICAL: Awake and alert. Cranial nerves II through XII intact. Motor and sensory grossly within normal limits. Five out of 5 muscle strength in all muscle groups. Normal speech. Laboratory Laboratory Tests Test 11/15/17 10:05 White Blood Count 5.5 Red Blood Count 3.86 Hemoglobin 13.6 Hematocrit 39.6 Mean Corpuscular Volume 102.4 Mean Corpuscular Hemoglobin 35.2 Mean Corpuscular Hemoglobin Concent 34.4 Red Cell Distribution Width 14.9 Platelet Count 264 Mean Platelet Volume 7.4 Neutrophils (%) (Auto) 67.9 Lymphocytes (%) (Auto) 19.2 Monocytes (%) (Auto) 9.0 Eosinophils (%) (Auto) 3.6 Basophils (%) (Auto) 0.3 Neutrophils # (Auto) 3.8 Lymphocytes # (Auto) 1.1 Monocytes # (Auto) 0.5 Eosinophils # (Auto) 0.2 Basophils # (Auto) 0.0 CBC Comment DIFF FINAL Differential Comment Prothrombin Time 9.9 Prothromb Time International Ratio 1.0 Activated Partial Thromboplast Time 25.7 Blood Urea Nitrogen 16 Creatinine 0.99 Random Glucose 165 Total Protein 6.9 Albumin 3.6 Calcium Level 8.6 Alkaline Phosphatase 74 Aspartate Amino Transf (AST/SGOT) 19 Alanine Aminotransferase (ALT/SGPT) 19 Total Bilirubin 0.4 Sodium Level 135 Potassium Level 4.5 Chloride Level 98 Carbon Dioxide Level 29.8 Anion Gap 7 Estimat Glomerular Filtration Rate 54 Result Diagram: 11/15/17 1005 11/15/17 1005 Imaging Inpatient Medications Acetaminophen/ Hydrocodone Bitart (Forsyth 5-325 Mg) 1 tab ONCE ONCE PO Last administered on 11/15/17at 10:14; Start 11/15/17 at 10:00; Stop 11/15/17 at 10:01 ; Status DC Morphine Sulfate (Morphine Inj) 4 mg ONCE ONCE IV PUSH Last administered on at 10:58; Start 11/15/17 at 10:45; Stop 11/15/17 at 10:46; Status DC Propofol (Diprivan 200 Mg/20 ml Inj) 200 mg ONCE ONCE IV Last administered on 11/15/17at 11:09; Start 11/15/17 at 10:45; Stop 11/15/17 at 10:46; Status DC Caprini VTE Risk Assessment Caprini VTE Risk Assessment: Mod/High Risk (score >= 2) Caprini Risk Assessment Model Point Value = 1 Point Value = 2 Point Value = 3 Point Value = 5 Age 41-60 Minor surgery BMI > 25 kg/m2 Swollen legs Varicose veins or History of unexplained or recurrent spontaneous Oral contraceptives or hormone replacement Sepsis (< 1 month) Serious lung disease, including pneumonia (< 1 month) Abnormal pulmonary function Acute myocardial infarction Congestive heart failure (< 1 month) History of inflammatory bowel disease Medical patient at bed rest Age 61-74 Arthroscopic surgery Major open surgery (> 45 min) Laparoscopic surgery (> 45 min) Malignancy Confined to bed (> 72 hours) Immobilizing plaster cast Central venous access Age >= 75 History of VTE Family history of VTE Factor V Leiden Prothrombin [id number] Lupus anticoagulant Anticardiolipin antibodies Elevated serum homocysteine Heparin-induced thrombocytopenia Other congenital or acquired thrombophilia Stroke (< 1 month) Elective arthroplasty Hip, pelvis, or leg fracture Acute spinal cord injury (< 1 month) Prophylaxis Regimen Total Risk Factor Score Risk Level Prophylaxis Regimen 0-1 Low Early ambulation 2 Moderate Order ONE of the following: *Sequential Compression Device (SCD) *Heparin 5000 units SQ BID 3-4 Higher Order ONE of the following medications: *Heparin 5000 units SQ TID *Enoxaparin/Lovenox 40 mg SQ daily (WT < 150 kg, CrCl > 30 mL/min) *Enoxaparin/Lovenox 30 mg SQ daily (WT < 150 kg, CrCl > 10-29 mL/min) *Enoxaparin/Lovenox 30 mg SQ BID (WT < 150 kg, CrCl > 30 mL/min) AND/OR *Sequential Compression Device (SCD) 5 or more Highest Order ONE of the following medications: *Heparin 5000 units SQ TID (Preferred with Epidurals) *Enoxaparin/Lovenox 40 mg SQ daily (WT < 150 kg, CrCl > 30 mL/min) *Enoxaparin/Lovenox 30 mg SQ daily (WT < 150 kg, CrCl > 10-29 mL/min) *Enoxaparin/Lovenox 30 mg SQ BID (WT < 150 kg, CrCl > 30 mL/min) AND *Sequential Compression Device (SCD) Assessment and Plan Assessment and Plan A/P -right distal femur fracture keep NPO for now and start on IV fluid- pain control as needed. ortho consulted. -diabetes mellitus; hold metformin - accu-check with SSI -hypertension/ hypothyroidism; resume home meds- vasotec as needed. -DVT prophylaxis; pending ortho evaluation. Discussed Condition With the patient and ER physician. Physician Certification 2 Midnight Certification Type: Admission for Inpatient Services Order for Inpatient Services The services are ordered in accordance with Medicare regulations or non- Medicare payer requirements, as applicable. In the case of services not specified as inpatient-only, they are appropriately provided as inpatient services in accordance with the 2-midnight benchmark. Estimated LOS (days): 2 days is the estimated time the patient will need to remain in the hospital, assuming treatment plan goals are met and no additional complications. Post-Hospital Plan: Not yet determined Rakesh Sarabia MD Nov 15, 2017 12:38
[2017-11-15] MEDS: SODIUM CHLOR 0.9% 1000 ML INJ 1,000 ML IV SCH (13:06)
[2017-11-15] MEDS: MORPHINE SULFATE 2 MG/ML INJ IV PUSH PRN ×3 (13:07→22:12)
--- NOTE | 2017-11-15 14:09 | PD.CONS ---
HPI Service Orthopedic Surgeons Consult Requested By ER staff Reason for Consult Evaluation of right distal femur fracture Primary Care Physician Frankie Walker MD Admission Diagnosis femur fracture Diagnoses: (1) Periprosthetic fracture around internal prosthetic right knee joint, initial encounter Chief Complaint: Right knee pain History of Present Illness This patient is a 82 y/o female with history of hypertension,diabetes and hypothyroidism who presented to ER after she fell earlier today. She says that she tripped and fell after which she started to have some pain to the right knee. She denies any prodromal symptoms before the fall. She states her knee was doing well. She is status post a right total knee arthroplasty by Dr. Mcelroy although is unsure how long ago. She does occasionally use a walker. X- rays in the emergency department revealed a periprosthetic distal femur fracture. Orthopedic consultation was therefore requested. Review of Systems Reviewed and well outlined in the medical record Past Family Social History Past Medical History hypertension/diabetes/hypothyroidism. Past Surgical History knee replacement/ cataract surgery. Allergies: Coded Allergies: lactose (Unverified Allergy, Severe, DIFFICULTY BREATHING, 11/15/17) penicillin G (Unverified Allergy, Intermediate, RASH, 11/15/17) Active Ordered Medications Current Medications Medications (Trade) Dose Ordered Sig/Alva Route Start Time Stop Time Status Last Admin (Morphine Inj) 2 mg Q4H PRN IV PUSH 11/15/17 12:30 11/15/17 13:07 (Zofran Inj) 4 mg Q8HR PRN IV PUSH 11/15/17 12:30 (D50w (Vial) Inj) 50 ml UNSCH PRN IV PUSH 11/15/17 12:30 (Glucagon Inj) 1 mg UNSCH PRN OTHER 11/15/17 12:30 (NovoLOG SUPPLEMENTAL SCALE) 1 ACHS SLIDING SCALE SQ 11/15/17 17:00 (Synthroid) 150 mcg DAILY@0600 PO 11/16/17 06:00 (Cozaar) 100 mg DAILY PO 11/16/17 09:00 (Vasotec Inj) 1.25 mg Q8H PRN IV PUSH 11/15/17 12:30 Sodium Chloride 1,000 ml @ 75 mls/hr [id number] IV 11/15/17 13:00 11/15/17 13:06 Reported Meds & Active Scripts Active Reported Ergocalciferol 50,000 Unit Cap 50,000 Units PO Q7D Losartan (Losartan Potassium) 100 Mg Tab 100 Mg PO DAILY Zocor (Simvastatin) 20 Mg Tab 150 Mg PO HS Metformin (Metformin HCl) 1,000 Mg Tab 1,000 Mg PO BIDPC With meals Synthroid (Levothyroxine Sodium) 150 Mcg Tab 150 Mcg PO DAILY Aspirin 81 (Aspirin) 81 Mg Tabdr 81 Mg PO DAILY Family History not relevant to this admission. Social History no smoking. Physical Exam Vital Signs Vital Signs Date Time Temp Pulse Resp B/P (MAP) Pulse Ox O2 Delivery O2 Flow Rate FiO2 11/15/17 13:10 11/15/17 13:00 62 22 150/65 (93) 100 Nasal Cannula 2.00 11/15/17 12:27 58 16 163/70 (101) 100 Nasal Cannula 4.00 11/15/17 11:21 20 11/15/17 11:20 63 20 158/74 (102) 100 Nasal Cannula 2.00 11/15/17 11:20 20 11/15/17 11:15 64 27 160/69 (99) 100 Nasal Cannula 2.00 11/15/17 10:53 69 24 197/89 (125) 97 Nasal Cannula 2.00 11/15/17 10:06 97.6 66 24 205/83 (123) 94 Room Air Physical Exam The right lower extremity is in a knee immobilizer. This was left intact. She has a well-healed surgical incision. There is moderate swelling. There is pain with any attempted range of motion. She is able to move her toes and ankle freely. She is good capillary refill and sensation. Laboratory Laboratory Tests Test 11/15/17 10:05 White Blood Count 5.5 Red Blood Count 3.86 Hemoglobin 13.6 Hematocrit 39.6 Mean Corpuscular Volume 102.4 Mean Corpuscular Hemoglobin 35.2 Mean Corpuscular Hemoglobin Concent 34.4 Red Cell Distribution Width 14.9 Platelet Count 264 Mean Platelet Volume 7.4 Neutrophils (%) (Auto) 67.9 Lymphocytes (%) (Auto) 19.2 Monocytes (%) (Auto) 9.0 Eosinophils (%) (Auto) 3.6 Basophils (%) (Auto) 0.3 Neutrophils # (Auto) 3.8 Lymphocytes # (Auto) 1.1 Monocytes # (Auto) 0.5 Eosinophils # (Auto) 0.2 Basophils # (Auto) 0.0 CBC Comment DIFF FINAL Differential Comment Prothrombin Time 9.9 Prothromb Time International Ratio 1.0 Activated Partial Thromboplast Time 25.7 Blood Urea Nitrogen 16 Creatinine 0.99 Random Glucose 165 Total Protein 6.9 Albumin 3.6 Calcium Level 8.6 Alkaline Phosphatase 74 Aspartate Amino Transf (AST/SGOT) 19 Alanine Aminotransferase (ALT/SGPT) 19 Total Bilirubin 0.4 Sodium Level 135 Potassium Level 4.5 Chloride Level 98 Carbon Dioxide Level 29.8 Anion Gap 7 Estimat Glomerular Filtration Rate 54 Result Diagram: 11/15/17 1005 11/15/17 1005 Imaging Last 24 hours Impressions Femur X-Ray 11/15/17 1109 Signed Impressions: Service Date/Time: Wednesday, November 15, 2017 11:49 - CONCLUSION: Oblique displaced fracture involving the distal shaft of the femur just above the knee prosthesis. Tamir Lu MD Knee X-Ray 11/15/17 0000 Signed Impressions: Service Date/Time: Wednesday, November 15, 2017 10:23 - CONCLUSION: Fracture in the distal right femur just above the femoral prosthetic component of a total knee replacement. Ilia Wood MD Assessment & Plan Problem List: (1) Periprosthetic fracture around internal prosthetic right knee joint, initial encounter ICD Codes: M97.11XA - Periprosthetic fracture around internal prosthetic right knee joint, initial encounter Assessment and Plan The findings were discussed with the patient and her family. Her conditions are given for internal fixation to allow mobilization and pain control. This most likely will require retrograde intramedullary shanta fixation versus plate fixation. The nature of the planned surgical procedure, the risks, the expected benefits, as well as the postoperative expectations have been discussed with them in detail. In addition, the alternatives to treatment and risks of same were discussed. She acknowledges full understanding and agrees to it. Nicholas Parker MD Nov 15, 2017 14:09
[2017-11-15] MEDS ORDERED: ceFAZolin 2 GM PREMIX 50 ML IV SCH (14:15)
[2017-11-15] MEDS ORDERED: VANCOMYCIN INJ 1,000 MG in SODIUM CHLOR 0.9% 250 ML INJ 250 ML IV SCH (14:15)
[2017-11-15] MEDS ORDERED: CLINDAMYCIN 600 MG/NS PREMIX 50 ML IV ONE (14:30)
[2017-11-15] MEDS: INSULIN ASPART SUPPLEMENTAL SCALE SQ SCH ×2 (17:00→21:59)
[2017-11-15] MEDS ORDERED: CLINDAMYCIN 600 MG/NS PREMIX 50 ML IV SCH (17:00)
[2017-11-16] MEDS: SODIUM CHLOR 0.9% 1000 ML INJ 1,000 ML IV SCH (02:20)
[2017-11-16] MEDS: MORPHINE SULFATE 2 MG/ML INJ IV PUSH PRN ×2 (02:20→11:35)
[2017-11-16 03:30] VITALS: BP 155/66; PULSE 84; RESP 18; TEMP 97.3; O2SAT 98
[2017-11-16] MEDS ORDERED: POVIDONE IODINE 5% (ANTISEPSIS KIT) 4 APPLICATIONS EACH NARE PRN (05:00)
[2017-11-16] MEDS ORDERED: CHLORHEXIDINE GLUCONATE 2 % 1 PACK (2 CLOTHS) TOPICAL PRN (05:00)
[2017-11-16] MEDS ORDERED: LACTATED RINGER'S 1000 ML IV PRN (05:00)
[2017-11-16] MEDS: LEVOTHYROXINE SODIUM 150 MCG TAB PO SCH (06:02)
[2017-11-16 07:15] VITALS: BP 168/78; PULSE 84; RESP 18; TEMP 96.9; O2SAT 96
[2017-11-16] MEDS ORDERED: GENTAMICIN SULFATE 80 MG/2 ML VIAL ONE ×2 (07:29→15:26)
[2017-11-16] MEDS: LOSARTAN 50 MG TAB PO SCH (07:30)
[2017-11-16] MEDS: INSULIN ASPART SUPPLEMENTAL SCALE SQ SCH ×4 (08:00→20:52)
--- NOTE | 2017-11-16 09:12 | EKG ---
Date Performed: 11/16/2017 Time Performed: 07:41:00 PTAGE: 82 years EKG: Sinus rhythm WITH FREQUENT PACs LOW QRS VOLTAGE IN PRECORDIAL LEADS LEFT ANTERIOR FASCICULAR BLOCK POSSIBLE ANTER IOR MYOCARDIAL INFARCTION , PROBABLY OLD DIFFUSE NONSPECIFIC T WAVE ABNORMALITY ABNORMAL ECG PREVIOUS TRACING : 12/02/2016 10.34 No significant change from previous tracing noted. DOCTOR: Yousif Sevilla Interpretating Date/Time 11/16/2017 09:11:34
--- NOTE | 2017-11-16 09:23 | PD.CONS ---
HPI Service cardiology Consult Requested By Reason for Consult afib Primary Care Physician Frankie Walker MD History of Present Illness This is a pleasant 82 yo WF with no prior cardiac history with HTN, DM and hypothyroidism who presents after a fall at home yesterday. She tripped and fell causing a distal femur fracture; she denies syncope or prodrome. Orthopedic repair with internal fixation is planned but cardiac clearance is needed as EKG done today has been reported with new onset atrial fibrillation. The patient feels well other than limb pain and denies any recent chest pain, sob or palpitations. She reports having had a normal chemical stress test done approximately 5 years ago. (Elizabeth Pompa) Consult Requested By no afib NSR with PACs > 4 METS clear for surgery will sign off (Maged Figueroa MD) Review of Systems Consitutional: DENIES: Fatigue, Fever, Chills, Weight gain, Weight loss Respiratory: DENIES: Cough, Snoring, Shortness of breath, Wheezing, Sputum production Cardiovascular: DENIES: Chest pain, Palpitations, Syncope, Tachycardia Gastrointestinal: DENIES: Nausea, Vomiting, Change in bowel habits, Reflux, Bloody stools, Melena (Elizabeth Pompa) Past Family Social History Allergies: Coded Allergies: lactose (Unverified Allergy, Severe, DIFFICULTY BREATHING, 11/15/17) penicillin G (Unverified Allergy, Intermediate, RASH, 11/15/17) Past Medical History hypertension/diabetes/hypothyroidism. Past Surgical History knee replacement/ cataract surgery. Reported Medications Reported Meds & Active Scripts Active Reported Ergocalciferol 50,000 Unit Cap 50,000 Units PO Q7D Losartan (Losartan Potassium) 100 Mg Tab 100 Mg PO DAILY Zocor (Simvastatin) 20 Mg Tab 150 Mg PO HS Metformin (Metformin HCl) 1,000 Mg Tab 1,000 Mg PO BIDPC With meals Synthroid (Levothyroxine Sodium) 150 Mcg Tab 150 Mcg PO DAILY Aspirin 81 (Aspirin) 81 Mg Tabdr 81 Mg PO DAILY Active Ordered Medications Current Medications Medications (Trade) Dose Ordered Sig/Alva Route Start Time Stop Time Status Last Admin (Morphine Inj) 2 mg Q4H PRN IV PUSH 11/15/17 12:30 11/16/17 02:20 (Zofran Inj) 4 mg Q8HR PRN IV PUSH 11/15/17 12:30 (D50w (Vial) Inj) 50 ml UNSCH PRN IV PUSH 11/15/17 12:30 (Glucagon Inj) 1 mg UNSCH PRN OTHER 11/15/17 12:30 (NovoLOG SUPPLEMENTAL SCALE) 1 ACHS SLIDING SCALE SQ 11/15/17 17:00 (Synthroid) 150 mcg DAILY@0600 PO 11/16/17 06:00 11/16/17 06:02 (Cozaar) 100 mg DAILY PO 11/16/17 09:00 11/16/17 07:30 (Vasotec Inj) 1.25 mg Q8H PRN IV PUSH 11/15/17 12:30 11/15/17 16:24 Sodium Chloride 1,000 ml @ 75 mls/hr [id number] IV 11/15/17 13:00 11/16/17 02:20 Vancomycin HCl 1000 mg/Sodium Chloride 250 ml @ 250 mls/hr ULTRASOUND SPEC IV 11/15/17 14:15 11/18/17 14:14 Clindamycin/ Sodium Chloride 50 ml @ 100 mls/hr ULTRASOUND SPEC IV 11/15/17 17:00 11/16/17 23:59 Lactated Ringer's 1,000 ml @ 30 mls/hr Q24H PRN IV 11/16/17 05:00 11/19/17 04:59 (Betadine 5% Antisepsis Kit) 1 applic ULTRASOUND SPEC PRN EACH NARE 11/16/17 05:00 11/19/17 04:59 (Chlorhexidine 2% Cloth) 3 pack ULTRASOUND SPEC PRN TOPICAL 11/16/17 05:00 11/19/17 04:59 Family History non contributory Social History no smoking. (Elizabeth Pompa) Physical Exam Vital Signs Vital Signs Date Time Temp Pulse Resp B/P (MAP) Pulse Ox O2 Delivery O2 Flow Rate FiO2 11/16/17 07:15 96.9 84 18 168/78 (108) 96 11/16/17 03:30 97.3 84 18 155/66 (95) 98 11/15/17 23:20 96.9 82 18 158/67 (97) 95 11/15/17 20:49 97.3 81 18 150/78 (102) 97 11/15/17 16:27 96.6 78 18 180/87 (118) 100 11/15/17 13:10 11/15/17 13:00 62 22 150/65 (93) 100 Nasal Cannula 2.00 11/15/17 13:00 96.2 77 17 179/80 (113) 98 11/15/17 12:27 58 16 163/70 (101) 100 Nasal Cannula 4.00 11/15/17 11:21 20 11/15/17 11:20 63 20 158/74 (102) 100 Nasal Cannula 2.00 11/15/17 11:20 20 11/15/17 11:15 64 27 160/69 (99) 100 Nasal Cannula 2.00 11/15/17 10:53 69 24 197/89 (125) 97 Nasal Cannula 2.00 11/15/17 10:06 97.6 66 24 205/83 (123) 94 Room Air Physical Exam GENERAL: SKIN: Warm and dry. HEAD: Atraumatic. Normocephalic. EYES: Pupils equal and round. ENT: No nasal bleeding or discharge. NECK: Trachea midline. No JVD. CARDIOVASCULAR: Regular rate, irregularly irregular rhythm RESPIRATORY: No accessory muscle use. Clear to auscultation. Breath sounds equal bilaterally. GASTROINTESTINAL: Abdomen soft, non-tender, nondistended. Hepatic and splenic margins not palpable. MUSCULOSKELETAL: Extremities without clubbing, cyanosis, or edema. NEUROLOGICAL: Awake and alert. No obvious cranial nerve deficits. Normal speech. PSYCHIATRIC: Appropriate mood and affect; insight and judgment normal. Laboratory Laboratory Tests Test 11/15/17 10:05 White Blood Count 5.5 Red Blood Count 3.86 Hemoglobin 13.6 Hematocrit 39.6 Mean Corpuscular Volume 102.4 Mean Corpuscular Hemoglobin 35.2 Mean Corpuscular Hemoglobin Concent 34.4 Red Cell Distribution Width 14.9 Platelet Count 264 Mean Platelet Volume 7.4 Neutrophils (%) (Auto) 67.9 Lymphocytes (%) (Auto) 19.2 Monocytes (%) (Auto) 9.0 Eosinophils (%) (Auto) 3.6 Basophils (%) (Auto) 0.3 Neutrophils # (Auto) 3.8 Lymphocytes # (Auto) 1.1 Monocytes # (Auto) 0.5 Eosinophils # (Auto) 0.2 Basophils # (Auto) 0.0 CBC Comment DIFF FINAL Differential Comment Prothrombin Time 9.9 Prothromb Time International Ratio 1.0 Activated Partial Thromboplast Time 25.7 Blood Urea Nitrogen 16 Creatinine 0.99 Random Glucose 165 Total Protein 6.9 Albumin 3.6 Calcium Level 8.6 Alkaline Phosphatase 74 Aspartate Amino Transf (AST/SGOT) 19 Alanine Aminotransferase (ALT/SGPT) 19 Total Bilirubin 0.4 Sodium Level 135 Potassium Level 4.5 Chloride Level 98 Carbon Dioxide Level 29.8 Anion Gap 7 Estimat Glomerular Filtration Rate 54 (Elizabeth Pompa) Result Diagram: 11/15/17 1005 11/15/17 1005 Imaging Last 24 hours Impressions Femur X-Ray 11/15/17 1109 Signed Impressions: Service Date/Time: Wednesday, November 15, 2017 11:49 - CONCLUSION: Oblique displaced fracture involving the distal shaft of the femur just above the knee prosthesis. Tamir Lu MD (Elizabeth Pompa) Assessment and Plan Problem List: (1) Abnormal EKG ICD Codes: R94.31 - Abnormal electrocardiogram [ECG] [EKG] (2) Cardiac arrhythmia ICD Codes: I49.9 - Cardiac arrhythmia, unspecified Assessment and Plan 82 yo WF with no prior cardiac history with HTN, DM and hypothyroidism who presents after a fall at home yesterday. She tripped and fell causing a distal femur fracture in close proximity to prior knee replacement; she denies syncope or prodrome. Orthopedic repair with internal fixation is planned but cardiac clearance is needed as EKG done today has been reported with new onset atrial fibrillation. cardiac arrhythmia- EKG demonstrates normal rate; PACs vs. afib patient asymptomatic will need cardiac clearance for surgery (Elizabeth Pompa) Elizabeth Pompa Nov 16, 2017 09:23 Maged Figueroa MD Nov 16, 2017 11:34
--- NOTE | 2017-11-16 11:21 | HHI.PR ---
Subjective Remarks in no acute distress. pain is fairly controlled. awaiting cardiac clearance prior to the surgery. no chest pain, sob. d/w the RN. Objective Vitals Vital Signs Date Time Temp Pulse Resp B/P (MAP) Pulse Ox O2 Delivery O2 Flow Rate FiO2 11/16/17 07:15 96.9 84 18 168/78 (108) 96 11/16/17 03:30 97.3 84 18 155/66 (95) 98 11/15/17 23:20 96.9 82 18 158/67 (97) 95 11/15/17 20:49 97.3 81 18 150/78 (102) 97 11/15/17 16:27 96.6 78 18 180/87 (118) 100 11/15/17 13:10 11/15/17 13:00 62 22 150/65 (93) 100 Nasal Cannula 2.00 11/15/17 13:00 96.2 77 17 179/80 (113) 98 11/15/17 12:27 58 16 163/70 (101) 100 Nasal Cannula 4.00 11/15/17 11:21 20 11/15/17 11:20 63 20 158/74 (102) 100 Nasal Cannula 2.00 11/15/17 11:20 20 I/O 11/15/17 11/15/17 11/15/17 11/16/17 11/16/17 11/16/17 07:00 15:00 23:00 07:00 15:00 23:00 Intake Total 480 ml 809 ml Balance 480 ml 809 ml Intake Oral 480 ml 0 ml IV Total 809 ml # Voids 2 1 # Bowel Movements 0 0 Result Diagram: 11/15/17 1005 11/15/17 1005 Imaging Last Impressions Femur X-Ray 11/15/17 1109 Signed Impressions: Service Date/Time: Wednesday, November 15, 2017 11:49 - CONCLUSION: Oblique displaced fracture involving the distal shaft of the femur just above the knee prosthesis. Tamir Lu MD Knee X-Ray 11/15/17 0000 Signed Impressions: Service Date/Time: Wednesday, November 15, 2017 10:23 - CONCLUSION: Fracture in the distal right femur just above the femoral prosthetic component of a total knee replacement. Ilia Wood MD Objective Remarks GENERAL: This is a well-nourished, well-developed patient, in no apparent distress. CARDIOVASCULAR: Regular rate and regular rhythm without murmurs, gallops, or rubs. RESPIRATORY: Clear to auscultation. Breath sounds equal bilaterally. No wheezes , rales, or rhonchi. GASTROINTESTINAL: Abdomen soft, non-tender, nondistended. Normal, active bowel sounds MUSCULOSKELETAL: Extremities without clubbing, cyanosis, or edema. NEURO: Alert & Oriented x4 to person, place, time, situation. Moves all ext x4 Medications and IVs Inpatient Medications Acetaminophen/ Hydrocodone Bitart ([place] 5-325 Mg) 1 tab ONCE ONCE PO Last administered on 11/15/17at 10:14; Start 11/15/17 at 10:00; Stop 11/15/17 at 10:01 ; Status DC Chlorhexidine Gluconate (Chlorhexidine 2% Cloth) 3 pack GLOST PLACER PRN TOPICAL SEE LABEL COMMENTS; Start 11/16/17 at 05:00; Stop 11/19/17 at 04:59 Clindamycin/ Sodium Chloride 50 ml @ 100 mls/hr GLOST PLACER IV ; Start 11/15/17 at 17:00; Stop 11/16/17 at 23:59 Dextrose (D50w (Vial) Inj) 50 ml UNSCH PRN IV PUSH HYPOGLYCEMIA-SEE COMMENTS; Start 11/15/17 at 12:30 Enalaprilat (Vasotec Inj) 1.25 mg Q8H PRN IV PUSH SBP> OR = 180, DBP> OR = 100 Last administered on 11/15/17at 16:24; Start 11/15/17 at 12:30 Glucagon (Glucagon Inj) 1 mg UNSCH PRN OTHER HYPOGLYCEMIA-SEE COMMENTS; Start 11/15/17 at 12:30 Insulin Aspart (NovoLOG SUPPLEMENTAL SCALE) 1 ACHS SLIDING SCALE SQ ; Start at 17:00 Lactated Ringer's 1,000 ml @ 30 mls/hr Q24H PRN IV SEE LABEL COMMENTS; Start at 05:00; Stop 11/19/17 at 04:59 Levothyroxine Sodium (Synthroid) 150 mcg DAILY@0600 PO Last administered on at 06:02; Start 11/16/17 at 06:00 Losartan Potassium (Cozaar) 100 mg DAILY PO Last administered on 11/16/17at 07: 30; Start 11/16/17 at 09:00 Morphine Sulfate (Morphine Inj) 2 mg Q4H PRN IV PUSH PAIN 1-10 Last administered on 11/16/17at 02:20; Start 11/15/17 at 12:30 Ondansetron HCl (Zofran Inj) 4 mg Q8HR PRN IV PUSH NAUSEA; Start 11/15/17 at 12 :30 Povidone Iodine (Betadine 5% Antisepsis Kit) 1 applic GLOST PLACER PRN EACH NARE SEE LABEL COMMENTS; Start 11/16/17 at 05:00; Stop 11/19/17 at 04:59 Propofol (Diprivan 200 Mg/20 ml Inj) 200 mg ONCE ONCE IV Last administered on 11/15/17at 11:09; Start 11/15/17 at 10:45; Stop 11/15/17 at 10:46; Status DC Sodium Chloride 1,000 ml @ 75 mls/hr [id number] IV Last administered on at 02:20; Start 11/15/17 at 13:00 Vancomycin HCl 1000 mg/Sodium Chloride 250 ml @ 250 mls/hr GLOST PLACER IV ; Start 11/15/17 at 14:15; Stop 11/18/17 at 14:14 A/P Problem List: (1) 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 ortho consulted- awaiting cardiology clearance prior to the surgery. -abnormal EKG; sinus rhythm with PAC's vs a-fib- the patient is asymptomatic- awaiting cardiology evaluation. -diabetes mellitus; hold metformin - accu-check with SSI -hypertension/ hypothyroidism; resumed home meds- vasotec as needed. -DVT prophylaxis; pending ortho evaluation. Discharge Planning awaiting cardiology clearance and ortho intervention. Rakesh Sarabia MD Nov 16, 2017 11:21
[2017-11-16] MEDS ORDERED: PHENYLEPHRINE HCL 10 MG/ML VIAL IV ONE (12:00)
[2017-11-16] MEDS ORDERED: PHENYLEPH/NS 1000 MCG/10 ML SYR IV ONE (12:00)
[2017-11-16] MEDS ORDERED: DEXAMETHASONE SOD PHOS 4 MG/ML VIAL IV ONE (12:00)
[2017-11-16] MEDS ORDERED: ROCURONIUM INJ 50 MG/5 ML SYRINGE IV PUSH ONE (12:00)
[2017-11-16] MEDS ORDERED: ONDANSETRON HCL 4 MG/2 ML VIAL IV ONE (12:00)
[2017-11-16] MEDS ORDERED: PROPOFOL 200 MG/20 ML AMP IV ONE (12:00)
[2017-11-16] MEDS ORDERED: NEOSTIGMINE 5 MG/5 ML SYRINGE IV PUSH ONE (12:00)
[2017-11-16] MEDS ORDERED: ePHEDrine/NS 25 MG/5 ML SYRINGE IV ONE (12:00)
[2017-11-16] MEDS ORDERED: LIDOCAINE HCL 1% PF 5 ML SYRINGE OTHER ONE (12:00)
[2017-11-16] MEDS ORDERED: GLYCOPYRROLATE 1 MG/5 ML SYRINGE IV PUSH ONE (12:00)
[2017-11-16 12:12] VITALS: BP 165/80; PULSE 79; RESP 17; TEMP 97.5; O2SAT 98
[2017-11-16 14:55] VITALS: BP 162/70; PULSE 80; RESP 18; TEMP 98.4; O2SAT 98
[2017-11-16] MEDS ORDERED: CLINDAMYCIN PHOS 900 MG/6 ML VIAL ONE (15:26)
--- NOTE | 2017-11-16 19:36 | RADRPT ---
EXAM DATE/TIME: 11/16/2017 19:08 [facility] COMPARISON: No previous studies available for comparison. INDICATIONS : Post hardware placement right femur, fell MEDICAL HISTORY : None. SURGICAL HISTORY : Right knee arthroplasty ENCOUNTER: Subsequent ACUITY: 2 days PAIN SCORE: Non-responsive. LOCATION: Right Femur FINDINGS: There are postop changes of previous knee replacement with shanta and screw fixation of the femur. No co mplications identified. CONCLUSION: 1. Fixation right femur. David Padgett MD on November 16, 2017 at 19:32 Board Certified Radiologist. This report was verified electronically.
--- NOTE | 2017-11-16 19:47 | PD.OP ---
cc: Nicholas Parker MD Operative Report Date of Surgery: Nov 16, 2017 Preoperative Diagnosis: (1) Periprosthetic fracture around internal prosthetic right knee joint, initial encounter Postoperative Diagnosis: (1) Periprosthetic fracture around internal prosthetic right knee joint, initial encounter Procedure: Closed reduction with retrograde intramedullary shanta fixation right periprosthetic distal femur fracture Implants used: Synthes retrograde nail Anesthesia: Gen. Surgeon: Nicholas Parker Rod Cup Filler(s): Jessica Duran PA-C ([place]) The surgical procedure was assisted by my physician's bilingual legal assistant. Her presence was necessary throughout the case for manipulation and positioning of the surgical extremity. My PA was assisting me throughout the duration of this procedure. The skill set of the physician bilingual legal assistant was medically necessary to complete this procedure. During the surgical case the hvac maintenance technician was working at the back table and the physician bilingual legal assistant was directly assisting me. Operation and Findings: Indications: This 82-year-old female who underwent right total knee arthroplasty several years ago fell injuring her right lower extremity. She had immediate pain, deformity and inability ambulate. X-rays in the emergency department revealed a supracondylar right distal femur fracture. The total knee replacement appeared intact. She presents for internal fixation. Procedure and findings: The patient was taken to the operative suite and after undergoing an adequate level of general anesthesia was kept supine on the operating table. Preoperative antibiotics consisted of clindamycin 900 mg IV. The right lower extremity was then prepped and draped in usual sterile fashion with alcohol, Hibiclens and ChloraPrep. The previous incision was utilized over the knee extending from the inferior pole of the patella to the tibial tubercle. This was carried down through skin and subcutaneous tense tissue with a knife. The incision was medial to the midline and therefore a parapatellar tendon arthrotomy was made. The fat pad was incised. An entry point was selected in the intercondylar notch and a threaded guidepin advanced. The position was checked in both the AP and lateral planes with the C-arm. It was subsequently overdrilled. The fracture was then reduced and a ball- tipped guidepin advanced into the proximal fragment to the lesser trochanter. A measurement was made. The femur was then sequentially reamed to size 11.5. A 10 x 36 mm Synthes trochanteric nail was then seated. Utilizing the outrigger device a small incision was made laterally and a trocar placed against the bone. A pin was then advanced from lateral to medial. A measurement was made. The appropriate length helical blade was selected. After drilling the near cortex the helical blade was seated. An additional screw was placed proximal to the blade in a similar fashion. The position was checked in both the AP and lateral planes with the C-arm. The fracture was near anatomic. A freehand technique was utilized proximally. Under fluoroscopic guidance entry point was selected on the anterior cortex and one to the interlocking screw holes was drilled. A measurement was made in the appropriate length screws seated. The locking screw was then seated the locking screw was then seated at the end of the nail. The position of the internal fixation and fracture reduction were checked in both the AP and lateral planes with the C-arm. The wounds were then thoroughly irrigated. This included thorough lavage of the knee joint. They were closed in layers utilizing #1 Vicryl suture on the arthrotomy, 0 Vicryl suture on the deep tissue, 2-0 Vicryl suture in subcutaneous tense tissue and roxanna on the skin. Sterile dressings were applied, the patient was awakened, transferred to the hospital bed and taken to the recovery room in stable condition. Estimated blood loss: Less than 100 cc Complications: None Nicholas Parker MD Nov 16, 2017 19:47
[2017-11-16] MEDS ORDERED: ACETAMINOPHEN 325 MG TAB PO PRN (20:00)
[2017-11-16] MEDS ORDERED: POVIDONE IODINE 10% SOLN 118 ML BOTTLE TOPICAL PRN (20:00)
[2017-11-16] MEDS ORDERED: Post-op Orders (for Pharmacy) XX ONE (20:00)
[2017-11-16] MEDS ORDERED: ONDANSETRON HCL 4 MG/2 ML VIAL IVP PRN (20:00)
[2017-11-16] MEDS ORDERED: MAGNESIUM HYDROXIDE SUSP 30 ML CUP PO PRN (20:00)
[2017-11-16] MEDS ORDERED: LACTULOSE SYRUP 20 GM/30 ML CUP PO PRN (20:00)
[2017-11-16] MEDS ORDERED: MORPHINE SULFATE 8 MG/ML INJ IV PUSH PRN (20:00)
[2017-11-16] MEDS ORDERED: SENNOSIDES 8.6 MG TAB PO PRN (20:00)
[2017-11-16] MEDS ORDERED: SODIUM CHLORIDE 0.9% FLUSH 10 ML FLUSH IV FLUSH PRN (20:00)
[2017-11-16] MEDS ORDERED: BISACODYL 10 MG SUPP RECTAL PRN (20:00)
[2017-11-16] MEDS: LACTATED RINGER'S 1000 ML INJ 1,000 ML IV SCH ×2 (20:00→20:58)
[2017-11-16] MEDS ORDERED: MORPHINE SULFATE 4 MG/ML INJ IV PRN (20:30)
[2017-11-16] MEDS ORDERED: DO NOT ADM ANY ANTICOAGULANT DRUGS PRN (20:45)
[2017-11-16] MEDS: SODIUM CHLORIDE 0.9% FLUSH 10 ML FLUSH IV FLUSH SCH (20:52)
[2017-11-16] MEDS: DOCUSATE SODIUM 50 MG/SENNA 8.6 MG TAB PO SCH (20:52)
[2017-11-16 21:40] VITALS: BP 116/65; PULSE 68; RESP 18; TEMP 96.7; O2SAT 95
[2017-11-16] MEDS: oxyCODONE/ACETAMINOPHEN 5 MG/325 MG TAB PO PRN (22:55)
[2017-11-16 23:16] VITALS: BP 157/65; PULSE 63; RESP 18; TEMP 96.1; O2SAT 97
[2017-11-17] MEDS ORDERED: CLINDAMYCIN INJ 900 MG in SODIUM CHLORIDE 0.9% INJ 100 ML IV SCH (02:00)
[2017-11-17] MEDS: CLINDAMYCIN 900 MG/DEX PREMIX 50 ML IV SCH ×3 (02:08→20:59)
[2017-11-17 03:22] VITALS: BP 177/53; PULSE 61; RESP 18; TEMP 96.7; O2SAT 98
[2017-11-17] MEDS: oxyCODONE/ACETAMINOPHEN 5 MG/325 MG TAB PO PRN ×4 (04:59→22:42)
[2017-11-17] MEDS: LEVOTHYROXINE SODIUM 150 MCG TAB PO SCH (04:59)
[2017-11-17 05:49] LABS: HEMATOCRIT 30.7 % (35.0-46.0); HEMOGLOBIN 10.3 GM/DL (11.6-15.3)
--- NOTE | 2017-11-17 07:52 | PD.ORT.PN ---
Subjective Post Op Day #: 1 Subjective Remarks Postoperative day 1 right retrograde femur shanta Patient is awake and alert and stating her pain is much better controlled after surgery. No other complaints at this time Objective Vitals Vital Signs Date Time Temp Pulse Resp B/P (MAP) Pulse Ox O2 Delivery O2 Flow Rate FiO2 11/17/17 03:22 96.7 61 18 177/53 (94) 98 11/16/17 23:16 96.1 63 18 157/65 (95) 97 11/16/17 21:40 96.7 68 18 116/65 (82) 95 11/16/17 20:45 97.8 67 19 162/70 (100) 98 Nasal Cannula 3 11/16/17 20:30 66 24 141/72 (95) 97 Nasal Cannula 3 11/16/17 20:15 68 18 159/70 (99) 96 Nasal Cannula 3 11/16/17 20:00 78 14 145/63 (90) 97 Nasal Cannula 3 11/16/17 19:53 97.7 81 22 139/63 (88) 94 Nasal Cannula 3 11/16/17 14:55 98.4 80 18 162/70 (100) 98 11/16/17 12:12 97.5 79 17 165/80 (108) 98 I/O 11/16/17 11/16/17 11/16/17 11/17/17 11/17/17 11/17/17 07:00 15:00 23:00 07:00 15:00 23:00 Intake Total 809 ml 450 ml 115 ml 360 ml Output Total 0 ml Balance 809 ml 450 ml 115 ml 360 ml Intake Oral 0 ml 0 ml 15 ml 360 ml IV Total 809 ml 450 ml 100 ml Output Urine Total 0 ml # Voids 1 3 2 # Bowel Movements 0 0 0 Result Diagram: 11/17/17 0420 11/15/17 1005 Imaging Last 48 hours Impressions Femur X-Ray 11/15/17 1109 Signed Impressions: Service Date/Time: Wednesday, November 15, 2017 11:49 - CONCLUSION: Oblique displaced fracture involving the distal shaft of the femur just above the knee prosthesis. Tamir Lu MD Procedures Closed reduction with retrograde intramedullary shanta fixation right periprosthetic distal femur fracture 11/16/17 Objective Remarks RLE: Dressing dry and intact. Brace in place. Tender to palpation with mild swelling around incision site. Appropriate range of motion expected post operatively. Freely able to move distal digits. No calf pain. Negative Raissa's sign. Good cap refill. 2+ pedal pulses. Neurovascular intact. Assessment & Plan Ortho Post Op Day #: 1 Problem List: (1) Periprosthetic fracture around internal prosthetic right knee joint, initial encounter ICD Codes: M97.11XA - Periprosthetic fracture around internal prosthetic right knee joint, initial encounter Assessment and Plan POD #1 Closed reduction with retrograde intramedullary shanta fixation right periprosthetic distal femur fracture Progress rehabilitation, toe-touch weightbearing Start daily dressing changes postoperative day 2 Aspirin for DVT prophylaxis Discharge planning Jessica Duran Nov 17, 2017 7:52 am
[2017-11-17 08:00] VITALS: BP 155/72; PULSE 66; RESP 16; TEMP 96; O2SAT 96
[2017-11-17] MEDS: INSULIN ASPART SUPPLEMENTAL SCALE SQ SCH ×4 (08:00→20:58)
[2017-11-17] MEDS: DOCUSATE SODIUM 50 MG/SENNA 8.6 MG TAB PO SCH ×2 (08:13→20:59)
[2017-11-17] MEDS: LOSARTAN 50 MG TAB PO SCH (08:13)
[2017-11-17] MEDS: SODIUM CHLORIDE 0.9% FLUSH 10 ML FLUSH IV FLUSH SCH ×2 (09:00→20:59)
[2017-11-17 12:00] VITALS: BP 122/52; PULSE 72; RESP 16; TEMP 96.6; O2SAT 96
--- NOTE | 2017-11-17 14:33 | HHI.PR ---
Subjective Remarks Follow-up for knee fracture and fall Patient stated that her foot got caught on the carpet which cause her to fall. She is stating that she does not think she go home that she needs go to a rehab facility. Patient has no complaints. She stated that she asked for pain medication at 2 hours ago but has not received it yet. Her daughter is at the bedside during the interview. Patient tolerating oral intake. She also stated pain is controlled with current regimen. Respiratory therapist was also present during part of interview. He stated patient no longer needs oxygen. Patient denies any shortness of breathing or cough. Objective Vitals Vital Signs Date Time Temp Pulse Resp B/P (MAP) Pulse Ox O2 Delivery O2 Flow Rate FiO2 11/17/17 12:00 96.6 72 16 122/52 (75) 96 122/ 11/17/17 08:00 96.0 66 16 155/72 (99) 96 11/17/17 03:22 96.7 61 18 177/53 (94) 98 11/16/17 23:16 96.1 63 18 157/65 (95) 97 11/16/17 21:40 96.7 68 18 116/65 (82) 95 11/16/17 20:45 97.8 67 19 162/70 (100) 98 Nasal Cannula 3 11/16/17 20:30 66 24 141/72 (95) 97 Nasal Cannula 3 11/16/17 20:15 68 18 159/70 (99) 96 Nasal Cannula 3 11/16/17 20:00 78 14 145/63 (90) 97 Nasal Cannula 3 11/16/17 19:53 97.7 81 22 139/63 (88) 94 Nasal Cannula 3 11/16/17 14:55 98.4 80 18 162/70 (100) 98 I/O 11/16/17 11/16/17 11/16/17 11/17/17 11/17/17 11/17/17 07:00 15:00 23:00 07:00 15:00 23:00 Intake Total 809 ml 450 ml 115 ml 360 ml Output Total 0 ml Balance 809 ml 450 ml 115 ml 360 ml Intake Oral 0 ml 0 ml 15 ml 360 ml IV Total 809 ml 450 ml 100 ml Output Urine Total 0 ml # Voids 1 3 2 # Bowel Movements 0 0 0 Result Diagram: 11/17/17 0420 11/15/17 1005 Objective Remarks GENERAL: in NAD sitting in chair CARDIOVASCULAR: Regular rate and rhythm without murmurs, gallops, or rubs. RESPIRATORY: Breath sounds equal bilaterally. No accessory muscle use. GASTROINTESTINAL: Abdomen soft, non-tender, nondistended. MUSCULOSKELETAL: right leg in bandages and casie wrap, sensation is intact. DP pulses intact. Medications and IVs Current Medications Acetaminophen/ Hydrocodone Bitart ([place] 5-325 Mg) 1 tab ONCE ONCE PO Last administered on 11/15/17at 10:14; Start 11/15/17 at 10:00; Stop 11/15/17 at 10:01 ; Status DC Morphine Sulfate (Morphine Inj) 4 mg ONCE ONCE IV PUSH Last administered on at 10:58; Start 11/15/17 at 10:45; Stop 11/15/17 at 10:46; Status DC Propofol (Diprivan 200 Mg/20 ml Inj) 200 mg ONCE ONCE IV Last administered on 11/15/17at 11:09; Start 11/15/17 at 10:45; Stop 11/15/17 at 10:46; Status DC Morphine Sulfate (Morphine Inj) 2 mg Q4H PRN IV PUSH PAIN 1-10 Last administered on 11/16/17at 11:35; Start 11/15/17 at 12:30; Stop 11/16/17 at 20:12 ; Status DC Ondansetron HCl (Zofran Inj) 4 mg Q8HR PRN IV PUSH NAUSEA; Start 11/15/17 at 12 :30; Stop 11/16/17 at 20:09; Status DC Dextrose (D50w (Vial) Inj) 50 ml UNSCH PRN IV PUSH HYPOGLYCEMIA-SEE COMMENTS; Start 11/15/17 at 12:30 Glucagon (Glucagon Inj) 1 mg UNSCH PRN OTHER HYPOGLYCEMIA-SEE COMMENTS; Start 11/15/17 at 12:30 Insulin Aspart (NovoLOG SUPPLEMENTAL SCALE) 1 ACHS SLIDING SCALE SQ ; Start at 17:00 Levothyroxine Sodium (Synthroid) 150 mcg DAILY@0600 PO Last administered on at 04:59; Start 11/16/17 at 06:00 Losartan Potassium (Cozaar) 100 mg DAILY PO Last administered on 11/17/17at 08: 13; Start 11/16/17 at 09:00 Enalaprilat (Vasotec Inj) 1.25 mg Q8H PRN IV PUSH SBP> OR = 180, DBP> OR = 100 Last administered on 11/15/17at 16:24; Start 11/15/17 at 12:30 Sodium Chloride 1,000 ml @ 75 mls/hr [id number] IV Last administered on at 02:20; Start 11/15/17 at 13:00; Stop 11/16/17 at 20:09; Status DC Cefazolin Sodium/ Dextrose 50 ml @ 100 mls/hr ENVIRONMENTAL HEALTH NURSE IV ; Start 11/15/17 at 14:15; Stop 11/18/17 at 14:14; Status UNV Vancomycin HCl 1000 mg/Sodium Chloride 250 ml @ 250 mls/hr ENVIRONMENTAL HEALTH NURSE IV ; Start 11/15/17 at 14:15; Stop 11/16/17 at 20:33; Status DC Clindamycin/ Sodium Chloride 50 ml @ 100 mls/hr ENVIRONMENTAL HEALTH NURSE ONCE IV ; Start at 14:30; Stop 11/15/17 at 14:59; Status Cancel Clindamycin/ Sodium Chloride 50 ml @ 100 mls/hr ENVIRONMENTAL HEALTH NURSE IV ; Start 11/15/17 at 17:00; Stop 11/16/17 at 20:33; Status DC Lactated Ringer's 1,000 ml @ 30 mls/hr Q24H PRN IV SEE LABEL COMMENTS Last administered on 11/16/17at 14:56; Start 11/16/17 at 05:00; Stop 11/16/17 at 20:33 ; Status DC Povidone Iodine (Betadine 5% Antisepsis Kit) 1 applic ENVIRONMENTAL HEALTH NURSE PRN EACH NARE SEE LABEL COMMENTS; Start 11/16/17 at 05:00; Stop 11/16/17 at 20:33; Status DC Chlorhexidine Gluconate (Chlorhexidine 2% Cloth) 3 pack ENVIRONMENTAL HEALTH NURSE PRN TOPICAL SEE LABEL COMMENTS; Start 11/16/17 at 05:00; Stop 11/16/17 at 20:33; Status DC Gentamicin Sulfate (Gentamicin Inj) 240 mg STK-MED ONCE .ROUTE Last administered on 11/16/17at 07:29; Start 11/16/17 at 07:29; Stop 11/16/17 at 07:30 ; Status DC Clindamycin Phosphate (Cleocin Inj) 900 mg STK-MED ONCE .ROUTE Last administered on 11/16/17at 18:23; Start 11/16/17 at 15:26; Stop 11/16/17 at 15:27 ; Status DC Gentamicin Sulfate (Gentamicin Inj) 240 mg STK-MED ONCE .ROUTE ; Start 11/16/17 at 15:26; Stop 11/16/17 at 15:27; Status DC Lactated Ringer's 1,000 ml @ 80 mls/hr [id number] IV Last administered on at 20:58; Start 11/16/17 at 20:00 Sodium Chloride (NS Flush) 2 ml UNSCH PRN IV FLUSH FLUSH AFTER USING IV ACCESS ; Start 11/16/17 at 20:00 Sodium Chloride (NS Flush) 2 ml BID IV FLUSH Last administered on 11/17/17at 09: 00; Start 11/16/17 at 21:00 Clindamycin Phosphate 900 mg/ Sodium Chloride 106 ml @ 200 mls/hr Q8H IV ; Start 11/17/17 at 02:00; Stop 11/17/17 at 02:00; Status DC Miscellaneous Information (Post-op Orders (for Pharmacy)) STAT ONCE XX ; Start 11/16/17 at 20:00; Stop 11/16/17 at 20:11; Status DC Enoxaparin Sodium (Lovenox Inj) 40 mg Q24H SQ ; Start 11/17/17 at 19:00 Morphine Sulfate (Morphine Inj) 4 mg Q3H PRN IV PUSH Pain >7 when off SHIPPING AND RECEIVING SPECIALIST; Start 11/16/17 at 20:00; Stop 11/16/17 at 20:15; Status DC Oxycodone/ Acetaminophen (Percocet 5-325 Mg) 1 tab Q4H PRN PO PAIN LESS THAN 5 ON SCALE Last administered on 11/17/17at 12:30; Start 11/16/17 at 20:00 Oxycodone/ Acetaminophen (Percocet 5-325 Mg) 2 tab Q4H PRN PO PAIN SCALE 5 TO 10; Start 11/16/17 at 20:00 Acetaminophen (Tylenol) 650 mg Q6H PRN PO TEMPERATURE > 101 F; Start 11/16/17 at 20:00 Multivitamins/ Minerals Therapeutic (Theragran M Tab) 1 tab BID PO ; Start 11/17 at 21:00; Stop 01/16/18 at 20:59 Ondansetron HCl (Zofran Inj) 4 mg Q6H PRN IVP NAUSEA OR VOMITING; Start at 20:00 Povidone Iodine (Betadine 10% Top Soln) 30 applic UNSCH X1 PRN TOPICAL WOUND CARE; Start 11/16/17 at 20:00; Stop 11/18/17 at 19:59 Senna/Docusate Sodium (Denise-Colace) 1 tab BID PO Last administered on at 08:13; Start 11/16/17 at 21:00 Magnesium Hydroxide (Milk Of Magnesia Liq) 30 ml Q12H PRN PO Mild constipation ; Start 11/16/17 at 20:00 Sennosides (Senokot) 17.2 mg Q12H PRN PO Moderate constipation; Start 11/16/17 at 20:00 Bisacodyl (Dulcolax Supp) 10 mg DAILY PRN RECTAL SEVERE CONSITIPATION; Start at 20:00 Lactulose (Lactulose Liq) 30 ml DAILY PRN PO SEVERE CONSITIPATION; Start at 20:00 Fentanyl Citrate (fentaNYL INJ) 100 mcg STK-MED ONCE .ROUTE ; Start 11/16/17 at 20:04; Stop 11/16/17 at 20:05; Status DC Morphine Sulfate (Morphine Inj) 4 mg Q3H PRN IV Pain >7 when off SHIPPING AND RECEIVING SPECIALIST; Start at 20:30 Miscellaneous Information ALL NURSING DEPARTME... UNSCH PRN .XX SEE LABEL COMMENTS; Start 11/16/17 at 20:45; Stop 11/17/17 at 20:44 Clindamycin Phosphate/Dextrose 50 ml @ 200 mls/hr Q8H IV Last administered on 11/17/17at 11:30; Start 11/17/17 at 02:00; Stop 11/17/17 at 18:14 Lidocaine HCl (Xylocaine-Mpf 1% Inj) 5 ml STK-MED ONCE OTHER ; Start 11/16/17 at 12:00; Stop 11/17/17 at 11:08; Status DC Rocuronium Tilden (Zemuron Inj) 50 mg STK-MED ONCE IV PUSH ; Start 11/16/17 at 12:00; Stop 11/17/17 at 11:08; Status DC Neostigmine Methylsulfate (Prostigmine Inj) 5 mg STK-MED ONCE IV PUSH ; Start at 12:00; Stop 11/17/17 at 11:08; Status DC Glycopyrrolate (Robinul Inj) 1 mg STK-MED ONCE IV PUSH ; Start 11/16/17 at 12:00 ; Stop 11/17/17 at 11:08; Status DC Phenylephrine HCl (Neosynephrine/ NS 1000 Mcg/10ml Syr) 1,000 mcg STK-MED ONCE IV ; Start 11/16/17 at 12:00; Stop 11/17/17 at 11:08; Status DC Phenylephrine HCl (Neosynephrine Inj) 10 mg STK-MED ONCE IV ; Start 11/16/17 at 12:00; Stop 11/17/17 at 11:08; Status DC Ephedrine Sulfate (ePHEDrine/NS 25 MG/5 ML SYR) 25 mg STK-MED ONCE IV ; Start at 12:00; Stop 11/17/17 at 11:08; Status DC Dexamethasone Sodium Phosphate (Decadron Inj) 4 mg STK-MED ONCE IV ; Start 11/16 at 12:00; Stop 11/17/17 at 11:08; Status DC Ondansetron HCl (Zofran Inj) 4 mg STK-MED ONCE IV ; Start 11/16/17 at 12:00; Stop 11/17/17 at 11:08; Status DC Propofol (Diprivan 200 Mg/20 ml Inj) 200 mg STK-MED ONCE IV ; Start 11/16/17 at 12:00; Stop 11/17/17 at 11:08; Status DC A/P Problem List: (1) Periprosthetic fracture around internal prosthetic right knee joint, initial encounter ICD Code: M97.11XA - Periprosthetic fracture around internal prosthetic right knee joint, initial encounter Assessment and Plan This is a 82-year-old female who presented with a mechanical fall right distal femur fracture -Secondary to mechanical fall. -Status post right total knee arthroplasty on 11/16. -PT/OT consult. -Most likely she will need to go to a rehab facility. Cardiac arrhythmia -Spiral Runner consulted. Stated PACs versus atrial fibrillation. Asymptomatic. Management per scientific manager. diabetes mellitus -hold metformin secondary to procedure. accu-check with SSI hypertension/ hypothyroidism -Continue home medication. DVT prophylaxis -Per Ortho. Discharge Planning Most likely once patient medically cleared for discharge she would need to go to go to rehab facility. Case management already consulted. Tiesha Brown MD Nov 17, 2017 14:33
[2017-11-17 16:00] VITALS: BP 115/62; PULSE 67; RESP 16; TEMP 96.7; O2SAT 96
[2017-11-17] MEDS ORDERED: ENOXAPARIN SODIUM 40 MG/0.4 ML SYRINGE SQ SCH (19:00)
[2017-11-17 20:00] VITALS: BP 135/54; PULSE 92; RESP 15; TEMP 96.5; O2SAT 96
[2017-11-17] MEDS: MULTIVITAMINS/MINERALS THERAPEUTIC TAB PO SCH (20:59)
[2017-11-17] MEDS: LACTATED RINGER'S 1000 ML INJ 1,000 ML IV SCH (21:00)
[2017-11-18] VITALS: BP 128/65; PULSE 83; RESP 16; TEMP 97.1; O2SAT 93
[2017-11-18] MEDS: LEVOTHYROXINE SODIUM 150 MCG TAB PO SCH (07:08)
[2017-11-18] MEDS: oxyCODONE/ACETAMINOPHEN 5 MG/325 MG TAB PO PRN (07:08)
--- NOTE | 2017-11-18 07:25 | PD.ORT.PN ---
Subjective Post Op Day #: 2 Subjective Remarks Postoperative day 2 right retrograde femur shanta Patient is awake and alert and stating her pain is controlled. She states that she sat up in a chair for a while yesterday and also attempted walking with physical therapy. No other complaints at this time. She expresses interest may discharge to rehabilitation. Objective Vitals Vital Signs Date Time Temp Pulse Resp B/P (MAP) Pulse Ox O2 Delivery O2 Flow Rate FiO2 11/18/17 00:00 97.1 83 16 128/65 (86) 93 11/17/17 20:00 96.5 92 15 135/54 (81) 96 11/17/17 19:33 Room Air 11/17/17 18:47 Nasal Cannula 2.00 11/17/17 16:00 96.7 67 16 115/62 (79) 96 11/17/17 12:00 96.6 72 16 122/52 (75) 96 122/ 11/17/17 08:00 96.0 66 16 155/72 (99) 96 I/O 11/17/17 11/17/17 11/17/17 11/18/17 11/18/17 11/18/17 07:00 15:00 23:00 07:00 15:00 23:00 Intake Total 360 ml 1900 ml 515 ml Balance 360 ml 1900 ml 515 ml Intake Oral 360 ml 1900 ml IV Total 515 ml # Voids 2 2 # Bowel Movements 0 Result Diagram: 11/17/17 0420 11/15/17 1005 Imaging Last 48 hours Impressions Femur X-Ray 11/15/17 1109 Signed Impressions: Service Date/Time: Wednesday, November 15, 2017 11:49 - CONCLUSION: Oblique displaced fracture involving the distal shaft of the femur just above the knee prosthesis. Tamir Lu MD Procedures Closed reduction with retrograde intramedullary shanta fixation right periprosthetic distal femur fracture 11/16/17 Objective Remarks RLE: Dressing dry and intact. Brace in place. Tender to palpation with mild swelling around incision site. Appropriate range of motion expected post operatively. Freely able to move distal digits. No calf pain. Negative Raissa's sign. Good cap refill. 2+ pedal pulses. Neurovascular intact. 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 Parker in approximately 3 weeks Jessica Duran Nov 18, 2017 07:25
[2017-11-18 07:38] VITALS: BP 123/66; PULSE 87; RESP 18; TEMP 97.6; O2SAT 93
[2017-11-18] MEDS: INSULIN ASPART SUPPLEMENTAL SCALE SQ SCH ×2 (08:00→11:43)
[2017-11-18] MEDS: MULTIVITAMINS/MINERALS THERAPEUTIC TAB PO SCH (08:37)
[2017-11-18] MEDS: DOCUSATE SODIUM 50 MG/SENNA 8.6 MG TAB PO SCH (08:37)
[2017-11-18] MEDS: LOSARTAN 50 MG TAB PO SCH (08:37)
[2017-11-18] MEDS: LACTATED RINGER'S 1000 ML INJ 1,000 ML IV SCH (08:40)
[2017-11-18] MEDS: SODIUM CHLORIDE 0.9% FLUSH 10 ML FLUSH IV FLUSH SCH (08:40)
[2017-11-18 08:45] VITALS: RESP 18
[2017-11-18] MEDS ORDERED: OXYC1TAB63 PO (10:35)
[2017-11-18] MEDS ORDERED: THERM PO (10:35)
--- NOTE | 2017-11-18 10:35 | HHI.DS ---
Discharge Summary Admission Date Nov 15, 2017 at 12:13 Admitting Diagnosis femur fracture (1) Periprosthetic fracture around internal prosthetic right knee joint, initial encounter ICD Code: M97.11XA - Periprosthetic fracture around internal prosthetic right knee joint, initial encounter Brief History - From Admission patient is a 82 y/o female with history of hypertension,diabetes and hypothyroidism who presented to ER after she fell earlier today. she says that she tripped and fell after which she started to have some pain to the right knee. she denies any prodromal symptoms before the fall. she didn't pass out and no head trauma. pain to the right knee was moderate in intesity at the time of my evaluation. CBC/BMP: 11/17/17 0420 11/15/17 1005 Significant Findings Laboratory Tests Test 11/17/17 04:20 Hemoglobin 10.3 GM/DL (11.6-15.3) Hematocrit 30.7 % (35.0-46.0) PE at Discharge GENERAL: in NAD sitting in chair CARDIOVASCULAR: Regular rate and rhythm without murmurs, gallops, or rubs. RESPIRATORY: Breath sounds equal bilaterally. No accessory muscle use. GASTROINTESTINAL: Abdomen soft, non-tender, nondistended. MUSCULOSKELETAL: right leg in bandages and casie wrap, sensation is intact. DP pulses intact. Discharge Instructions Activities you can perform: Toe Touch Weight Bearing Activities to Avoid: Lifting/Bending Tiesha Brown MD Nov 18, 2017 10:35
[2017-11-18] MEDS ORDERED: ASPI81TA23 PO (10:39)
== END 2017-11-18 11:54 | DRG 482 ==
LOC: NEPC 09:53 → NEDA 12:13 → N06B 13:26
PROVIDERS: ADMIT Family Medicine; ATTEND Family Medicine
PROC: 0QSBXZZ Reposition Right Lower Femur, External Approach (ICD-10-PCS; 2017-11-15)
PROC: 0QSB06Z Reposition Right Lower Femur with Intramedullary Internal Fixation Device, Open Approach (ICD-10-PCS; principal; 2017-11-16 17:55)
DX: M97.11XA Periprosthetic fracture around internal prosthetic right knee joint, initial encounter (principal); E11.9 Type 2 diabetes mellitus without complications; I48.91 Unspecified atrial fibrillation; I10 Essential (primary) hypertension; W01.0XXA Fall on same level from slipping, tripping and stumbling without subsequent striking against object, initial encounter; E78.00 Pure hypercholesterolemia, unspecified; M19.90 Unspecified osteoarthritis, unspecified site; K21.9 Gastro-esophageal reflux disease without esophagitis; E03.9 Hypothyroidism, unspecified; Z79.84 Long term (current) use of oral hypoglycemic drugs; Y92.009 Unspecified place in unspecified non-institutional (private) residence as the place of occurrence of the external cause; Z79.82 Long term (current) use of aspirin
CPT/HCPCS: 73552; 73560; 76000; 80053; 82948; 85014; 85018; 85025; 85610; 85730; 93005; 94150; C1713; C1769; J1100; J1580; J1650; J1815; J2270; J2370; J2405; J2710; J3010; J7030; J7120; L1830